=== PATIENT | female | born 1935 | race Caucasian/White ===

== ENCOUNTER 2017-04-26 10:28 | Emergency (ER) | payer MEDICARE ==
[2017-04-26] MEDS ORDERED: Lidocaine 1% PF 5 ML VIAL ONE (11:25)
[2017-04-26] MEDS ORDERED: HYDROcodone/Acetaminophen 5/325 mg Tablet ONE (11:25)
--- NOTE | 2017-04-26 11:59 | RAD ---
THREE VIEWS LEFT HAND: Indication: History of fall. FINDINGS: There is a dorsal impacted intraarticular distal radius fracture. There is diffuse osteopenia. No ad ditional fractures grossly evident. There is scattered osteoarthrosis. IMPRESSION: 1. Dorsally impacted distal radius fracture. Dedicated radiographs of the left wrist are recommended . 2. No acute fracture or subluxation of the left knee. POS: [facility]
--- NOTE | 2017-04-26 11:59 | RAD ---
FOUR VIEWS LEFT KNEE: Indication: Fall. FINDINGS: There is diffuse osteopenia. There is left total knee prosthesis that projects in the expected posit ion. No acute fracture or subluxation is evident. IMPRESSION: No acute osseous abnormality. POS: [facility]
--- NOTE | 2017-04-26 12:03 | RAD ---
AP PELVIS: Indication: Fall, pelvic pain. FINDINGS: There is diffuse osteopenia. There is mild degenerative change of both hips. There is chondrocalcino sis of both hips as well as the symphysis pubis. There is vertebroplasty change at L4 and L5. No acu te fracture or subluxation is evident. Enthesopathic change off the anterior iliac wing is stable. IMPRESSION: No acute osseous abnormality. POS: [facility]
--- NOTE | 2017-04-26 12:49 | RAD ---
THREE VIEWS OF THE LEFT WRIST: Comparison: Left hand laceration after fall over a case of [employer] this morning. FINDINGS: Three views of the left wrist shows no evidence of acute fracture or dislocation. There is widening of the scapholunate interval and moderate degenerative change in the radiocarpal joint. No radiopaqu e foreign body is seen. IMPRESSION: Moderate left wrist degenerative change without acute osseous abnormality. POS: [facility]
[2017-04-26] MEDS ORDERED: Bacitracin Zinc 1 Packet ONE (13:23)
== END 2017-04-26 13:45 | disposition home or self-care (01) ==
LOC: SCSER 10:28
DX: S61.412A Laceration without foreign body of left hand, initial encounter (principal); S39.011A Strain of muscle, fascia and tendon of abdomen, initial encounter; S63.502A Unspecified sprain of left wrist, initial encounter; S80.02XA Contusion of left knee, initial encounter; I10 Essential (primary) hypertension; K21.9 Gastro-esophageal reflux disease without esophagitis; Z79.899 Other long term (current) drug therapy; W20.8XXA Other cause of strike by thrown, projected or falling object, initial encounter
CPT/HCPCS: 12002; 72170; J2001

== ENCOUNTER 2017-05-11 12:10 | Outpatient (CLI) | payer MEDICARE ==
--- NOTE | 2017-05-11 16:04 | MRI ---
MRI LUMBAR SPINE WITHOUT CONTRAST: Technique: Multiplanar, multisequential imaging of the lumbar spine obtained. History: Intervertebral disc disorder. Lumbar radiculopathy. Patient fell two weeks ago with persist ent back pain. Comparison: MRI lumbar spine from 10-06-16, lumbar CT 03-16-16. FINDINGS: S1 is a transitional vertebra which will be designated to S1 which corresponds to previous designati ons. There is a wedge compression deformity at the T12 vertebra with loss of central and anterior height. This is stable from the 10-06-16 exam and also from the 03-16-16 exam. T12-L1: No disc bulge or protrusion. L1-2: There is a compression deformity which has progressed since the CT of 03-16-16. There is eviden ce of vertebroplasty material within this vertebral body since the prior exam of 10-06-16. The degree of compression has not significantly changed since that exam. There is mild retropulsion of the pos terior superior cortex of L2 and there is a diffuse bulge at the L1-2 disc flattening the thecal sac . Facet arthrosis is present and there is mild central canal stenosis at this level which is unchang ed. L2-3: There is no evidence of protrusion or disc bulge. No central canal stenosis at this level. L3-4: No disc bulge or protrusion. No central canal or foraminal stenosis. L4-5: Vertebroplasty changes at L4 with no compression. L5: There is vertebroplasty changes. There is mild loss of height at L5 with evidence of superior en dplate compression. Slight retropulsion of the posterior superior cortex of L5 with normal disc bulg e at the L4-5 disc. Facet hypertrophy. Mild central canal stenosis. L5-S1: Mild diffuse disc bulge is again seen flattening the thecal sac. There is disc hypertrophy. M ild to moderate central canal stenosis. Disc osteophyte complex projects laterally to the right at t his level and appears to contact the lateral right L5 nerve root. IMPRESSION: Vertebroplasty changes at L2, L4, and L5 when compared to the prior study. Compression deformities a re again seen and are stable. Findings as each level are described. POS: [facility]
== END 2017-05-11 12:11 | disposition home or self-care (01) ==
LOC: SCSMRI 12:10
PROVIDERS: ATTEND Specialist
DX: M51.16 Intervertebral disc disorders with radiculopathy, lumbar region (principal); Z98.890 Other specified postprocedural states
CPT/HCPCS: 72148

== ENCOUNTER 2018-07-04 01:50 | Observation (INO) | payer MEDICARE ==
[2018-07-04] MEDS ORDERED: Lidocaine 1% w/Epinephrine 1:100K 20 ML VIAL ONE (02:04)
[2018-07-04] MEDS ORDERED: Acetaminophen 500 MG TAB ONE (02:14)
[2018-07-04] MEDS ORDERED: Ondansetron ODT 4 MG TAB ONE (02:54)
[2018-07-04 03:30] LABS: #Basophils 0.1 thou/uL (0.0-0.2); #Eosinphils 0.3 thou/uL (0.0-0.7); #Lymphocytes 3.4 thou/uL (1.20-3.40); #Monocytes 0.7 thou/uL (0.11-0.59); #Neutrophils 10.6 thou/uL (1.40-6.50); %Basophils 0.9 % (0.0-1.0); %Eosinophils 1.8 % (0.0-10.0); %Lymphocytes 22.4 % (21.0-51.0); %Monocytes 4.5 % (0.0-10.0); %Neutrophils 70.4 % (42.0-75.0); Hemoglobin 14.1 g/dL (12.0-16.0); Mean Corpuscular HGB CONC 34.9 g/dL (32.0-36.0); Mean Corpuscular Hemoglobin 29.6 pg (27.0-31.0); Mean Corpuscular Volume 84.7 fL (78.0-98.0); Platelet Count 291 thou/uL (130-400); RBC Distribution Width 11.4 % (11.5-14.5); Red Blood Cell (RBC) Count 4.75 mill/uL (4.20-5.40); White Blood Cell (WBC) Count 15.1 thou/uL (4.8-10.8)
[2018-07-04 04:06] LABS: ALT (SGPT) 28 U/L (8-55); AST (SGOT) 21 U/L (5-34); Albumin 3.8 g/dL (3.4-4.8); Alkaline Phosphatase 76 U/L (40-150); Anion Gap 16 mmol/L (10-20); BUN (Urea Nitrogen) 16 mg/dL (9.8-20.1); Bilirubin, Total 0.3 mg/dL (0.2-1.2); Calc. Creatinine Clearance 0 mL/min (70-130); Calcium 10.5 mg/dL (7.8-10.44); Carbon Dioxide 23 mmol/L (23-31); Chloride 102 mmol/L (98-107); Estimated GFR-MDRD 68; Globulin 2.7 g/dL (2.4-3.5); Glucose 165 mg/dL (83-110); Potassium 3.7 mmol/L (3.5-5.1); Protein, Total 6.5 g/dL (6.0-8.3); Sodium 137 mmol/L (136-145)
[2018-07-04 06:58] VITALS: BMI 35.6
[2018-07-04] MEDS ORDERED: Meclizine HCl 12.5 MG TAB PO PRN (08:05)
[2018-07-04 08:16] LABS: #Lymphocytes 2.3 thou/uL (1.20-3.40); #Monocytes 0.6 thou/uL (0.11-0.59); #Neutrophils 11.8 thou/uL (1.40-6.50); %Basophils 0.3 % (0.0-1.0); %Eosinophils 0.3 % (0.0-10.0); %Lymphocytes 15.9 % (21.0-51.0); %Monocytes 3.9 % (0.0-10.0); %Neutrophils 79.6 % (42.0-75.0); Hemoglobin 12.8 g/dL (12.0-16.0); Mean Corpuscular HGB CONC 33.9 g/dL (32.0-36.0); Mean Corpuscular Hemoglobin 30.9 pg (27.0-31.0); Mean Corpuscular Volume 91.1 fL (78.0-98.0); Mean Platelet Volume 6.8 fL (7.4-10.4); Platelet Count 299 thou/uL (130-400); RBC Distribution Width 11.9 % (11.5-14.5); Red Blood Cell (RBC) Count 4.13 mill/uL (4.20-5.40); White Blood Cell (WBC) Count 14.8 thou/uL (4.8-10.8)
[2018-07-04 08:18] LABS: Troponin I Less than 0.010 ng/mL (< 0.028)
--- NOTE | 2018-07-04 08:21 | RAD ---
PORTABLE CHEST ONE VIEW: Date: 07-04-18 Time: 4:17 a.m. History: Syncope. FINDINGS: The heart size is borderline. The lungs are expanded without focal areas of consolidation, pneumothor ax, hari pulmonary edema or pleural effusions. IMPRESSION: No acute process. POS: [facility]
--- NOTE | 2018-07-04 08:24 | RAD ---
LEFT HIP TWO VIEWS: History: Fall. Left leg pain. Lower extremity laceration. FINDINGS/IMPRESSION: There are post op changes of total knee arthroplasty. The left tibia and fibula are intact. POS: [facility]
--- NOTE | 2018-07-04 10:45 | CT ---
HEAD CT WITHOUT CONTRAST: HISTORY: Syncope. COMPARISON: None. FINDINGS: No parenchymal hemorrhage. No extraaxial hematoma. No midline shift. Basilar cisterns are patent. Brain volume is age appropriate. Cortical mathias white matter differentiation is preserved. The ventricles and sulci are patent and symmetric. White matter hypodensities due to chronic small vessel ischemic change. Indeterminate lacunar infarc t along the anterior limb of the left internal capsule. The calvarium is intact. Adequate aeration of the sinuses and mastoid air cells. Atherosclerosis is noted. IMPRESSION: 1. Indeterminate lacunar infarct involving the anterior limb of the left internal capsule. 2. Chronic small vessel ischemic changes of the white matter. 3. Further interrogation with brain MRI, if clinically warranted. POS: [facility]
[2018-07-04] MEDS ORDERED: Senokot S 8.6-50 MG TAB PO PRN (11:20)
--- NOTE | 2018-07-04 12:07 | ULT ---
ULTRASOUND CAROTID DOPPLER STANDARD: History: Syncope. Comparison: None. FINDINGS: There are no elevated peak systolic velocities within the internal carotid arteries. Vertebral arteri es are patent with antegrade flow. Right ICA/CCA ratio is 0.6 and left ICA/CCA is 0.8. IMPRESSION: No hemodynamically significant stenosis. POS: [facility]
[2018-07-04 12:54] LABS: Bilirubin Negative (Negative); Blood, Urine Negative (Negative); Clarity CLEAR (Clear); Glucose, Urine (Dipstick) Negative (Negative); Leukocyte Trace (Negative); Nitrite Negative (Negative); Protein, Urine (Dipstick) Negative (Neg-Trace); Specific Gravity, Urine 1.014 (1.002-1.036); Urobilinogen 0.2 mg/dL (0.2-1.0)
[2018-07-04 12:55] LABS: Bacteria/HPF None Seen HPF (None Seen); Hyaline Casts/LPF 0-3 HYALINE CAST LPF (0-3 Hyaline); WBC/HPF 0-3 HPF (0-3)
[2018-07-04 13:22] LABS: RBC/HPF 0-3 HPF (0-3)
[2018-07-04] MEDS: Acetaminophen 325 MG TAB PO PRN (13:43)
[2018-07-04] MEDS: Acetaminophen/Codeine 30-300mg Tablet PO PRN ×2 (14:55→20:22)
--- NOTE | 2018-07-04 15:49 | HP ---
PCP: Dr. Bisi Taylor. CHIEF COMPLAINT: Dizziness, fall, and left lower leg laceration. HISTORY OF PRESENT ILLNESS: Ms. Egan is a very pleasant 83-year-old female, who was brought to the emergency room after she states that she got up, walked to the bathroom, became dizzy and fell striking a portable heater that is in her bathroom causing about a 13-cm laceration on her left lower leg and bruises along her left side of the lateral rib cage. She does report that she has a history of vertigo for the last several months. Reports that she can do the Luis Alberto maneuver and it helps significantly. Reports this is the first time she has actually fallen from being dizzy. Reports that when she does feel dizzy, she often feels a pull to the left side. Reports that sometimes at night when she is attempting to sleep, she gets dizzy and she can roll onto her left side and it abates. She has seen Dr. Taylor for this vertigo. He prescribed an initial course of prednisone and then meclizine as needed. Also has a past medical history of hypertension and GERD. She did deny any chest pain or shortness of breath. Denies hitting her head when she fell this morning. She denied any loss of consciousness. She reports that her side took the brunt of the fall. The patient was admitted for syncopal workup. The patient's notes report that she became a little hypotensive during the lock repair. She was given some sodium chloride 1 L and that improved. Her blood pressure while she has been hospitalized has remained stable. She was admitted to the stroke unit for further evaluation. PAST MEDICAL HISTORY: As above. PAST SURGICAL HISTORY: Has had a lumbar spinal surgery, hysterectomy, bilateral knee replacements, cataract repair to bilateral eyes. PSYCH HISTORY: None. SOCIAL HISTORY: The patient denies any alcohol use. Denies any drug use. Denies any history of smoking. ALLERGIES: SHE IS ALLERGIC TO POULTRY, EGGS, AND PENICILLIN. HOME MEDICATIONS: Include; 1. Amlodipine 2.5 mg p.o. at bedtime. 2. Aspirin 325 mg p.o. daily. 3. Lactobacillus 1 capsule p.o. daily. 4. Losartan/hydrochlorothiazide 100 mg/12.5 mg p.o. daily. 5. Toprol-XL 50 mg p.o. b.i.d. 6. Multivitamin 1 tablet p.o. daily. 7. Zegerid 20 mg one p.o. daily. 8. Trazodone 50 mg p.o. at bedtime. REVIEW OF SYSTEMS: The patient is reporting some tenderness to her left lateral rib cage. There is some ecchymosis present. Mild tenderness to left lower leg, where her laceration is. She is denying any current dizziness. Denies any chest pain, shortness of breath, or diaphoresis. All other systems were reviewed and are negative unless mentioned in the HPI. PHYSICAL EXAMINATION: VITAL SIGNS: Temperature is 98.8, pulse is 81, respirations are 20, blood pressure 129/68, and pulse ox is 97% on room air. CONSTITUTIONAL: The patient appears nontoxic, in no distress. She is alert and oriented to person, place, and time. HEENT: Head is atraumatic and normocephalic. Eyes are equally round and reactive to light. Extraocular muscles are intact. ENT; mouth exam is normal. Mucous membranes are moist. NECK: Normal range of motion. Trachea is midline. RESPIRATORY/CHEST: Breath sounds are clear. Chest movement is symmetrical. She does have a left thoracic tenderness to her rib cage on the left lateral. No step-off or crepitus is palpated. CARDIOVASCULAR: S1 and S2. Regular heart rate. Normal rate and rhythm. ABDOMEN: Female. Nontender. Bowel sounds are heard. BACK: Normal inspection. No tenderness. EXTREMITIES: Upper extremities; inspection is normal. Range of motion is normal. Sensation is intact. Pulses are equal bilaterally. Lower extremities; range of motion is normal. Motor strength is normal. Sensation is intact. Left dumont with a crescent-shaped laceration, 13 cm is currently sutured. NEURO: The patient is alert to person, place, and time. There is no focal sensory or motor weakness. SKIN: Dry, normal in color. Laceration is noted to left dumont. DIAGNOSTIC DATA: EKG interpretation; normal sinus rhythm at 63 beats per minute. She has a first-degree AV block, left axis deviation. Chest x-ray shows no acute process. Also had an x-ray of her left tib-fib, which showed tibia and fibula are intact. No other acute changes. LABORATORY DATA: White blood cell count is 14.8, red blood cells of 4.13, and platelet count 299. Chemistry; sodium 137, potassium 3.7, chloride 102, gap is 16, BUN is 16, creatinine is 0.81, GFR is 68, and glucose 165. Liver enzymes are unremarkable. Troponins x2 are undetectable. ASSESSMENT AND PLAN: 1. Dizziness with fall: Most likely related to vertigo; however, as this is the first time she has fallen due to her dizziness, we will do a transient ischemic attack workup including a CT of the brain, carotid Dopplers, and echocardiogram. We will trend troponins. We would gently hydrate and restart her meclizine. 2. Hypertension: We will continue her home medications. We will monitor her vital signs. 3. Gastrointestinal and deep vein thrombosis prophylaxis will be started. 4. Hospital course will be dependent on clinical findings. Job ID: [id number]
--- NOTE | 2018-07-04 18:08 | MRI ---
MRI OF THE BRAIN WITHOUT CONTRAST: 07/04/18 COMPARISON: None. HISTORY: Dizziness. Infarct seen on CT of indeterminate size. COMPARISON: CT of brain 07/04/18. TECHNIQUE: Multiplanar and multisequence MR images were obtained of the brain without IV contrast. FINDINGS: There are multiple scattered foci of high FLAIR signal in the subcortical and periventricular white m atter, likely secondary to small vessel ischemic disease. No restricted diffusion is seen to suggest an acute infarction. The abnormality on the CT of the brain represents a remote infarct. There is no evidence of hydrocephalus, intracranial hemorrhage or extra-axial fluid collection. The e xpected flow voids are present. The corpus callosum, pituitary, craniocervical junction are unremarka ble. The calvarium and overlying soft tissues are unremarkable. The visualized paranasal sinuses and masto id air cells are well aerated. IMPRESSION: Extensive small vessel ischemic disease without acute intracranial abnormality. POS: [facility]
[2018-07-04] MEDS: Famotidine 20 MG TAB PO SCH (20:22)
[2018-07-04] MEDS ORDERED: Amlodipine 5 MG TAB PO SCH (21:00)
[2018-07-05] MEDS: Acetaminophen 325 MG TAB PO PRN (00:54)
[2018-07-05] MEDS: Acetaminophen/Codeine 30-300mg Tablet PO PRN (02:54)
[2018-07-05 06:14] LABS: #Eosinphils 0.2 thou/uL (0.0-0.7); #Lymphocytes 3.1 thou/uL (1.20-3.40); #Monocytes 0.8 thou/uL (0.11-0.59); %Basophils 0.4 % (0.0-1.0); %Eosinophils 2.5 % (0.0-10.0); %Lymphocytes 34.2 % (21.0-51.0); %Monocytes 8.3 % (0.0-10.0); %Neutrophils 54.6 % (42.0-75.0); Hemoglobin 11.4 g/dL (12.0-16.0); Mean Corpuscular HGB CONC 34.3 g/dL (32.0-36.0); Mean Corpuscular Hemoglobin 31.5 pg (27.0-31.0); Mean Corpuscular Volume 91.8 fL (78.0-98.0); Mean Platelet Volume 6.7 fL (7.4-10.4); Platelet Count 242 thou/uL (130-400); RBC Distribution Width 12.1 % (11.5-14.5); Red Blood Cell (RBC) Count 3.62 mill/uL (4.20-5.40); White Blood Cell (WBC) Count 9.1 thou/uL (4.8-10.8)
[2018-07-05 06:36] LABS: ALT (SGPT) 23 U/L (8-55); AST (SGOT) 19 U/L (5-34); Albumin 3.4 g/dL (3.4-4.8); Alkaline Phosphatase 68 U/L (40-150); Anion Gap 11 mmol/L (10-20); BUN (Urea Nitrogen) 11 mg/dL (9.8-20.1); Bilirubin, Total 0.5 mg/dL (0.2-1.2); Calc. Creatinine Clearance 92 mL/min (70-130); Calcium 10.2 mg/dL (7.8-10.44); Carbon Dioxide 26 mmol/L (23-31); Chloride 103 mmol/L (98-107); Estimated GFR-MDRD 89; Globulin 2.1 g/dL (2.4-3.5); Glucose 105 mg/dL (83-110); Protein, Total 5.5 g/dL (6.0-8.3); Sodium 136 mmol/L (136-145)
[2018-07-05] MEDS ORDERED: Aspirin 325 mg Enteric Coated Tablet PO SCH (09:00)
[2018-07-05] MEDS ORDERED: Losartan 25 MG TAB PO SCH (09:00)
[2018-07-05] MEDS ORDERED: HYDROCHLOROTHIAZIDE PO SCH (09:00)
[2018-07-05] MEDS ORDERED: SODIUM BICARBONATE PO SCH (09:00)
[2018-07-05] MEDS ORDERED: Hydrochlorothiazide 25 MG TAB PO SCH (09:00)
[2018-07-05] MEDS ORDERED: OMEPRAZOLE PO SCH (09:00)
[2018-07-05] MEDS ORDERED: Multivit, Therapeutic 1 TAB PO SCH (09:00)
[2018-07-05] MEDS ORDERED: Floranex Packet PO SCH (09:00)
[2018-07-05] MEDS ORDERED: LOSARTAN PO SCH (09:00)
[2018-07-05] MEDS ORDERED: Sodium Bicarbonate Tab 325 MG TAB PO SCH (09:00)
[2018-07-05] MEDS: Famotidine 20 MG TAB PO SCH (10:02)
[2018-07-05 12:01] VITALS: BP 144/77; TEMP 98.1
--- NOTE | 2018-07-05 13:40 | DIS ---
DATE OF ADMISSION: 07/04/2018 DATE OF DISCHARGE: 07/05/2018 PRIMARY CARE PHYSICIAN: Bisi Taylor MD CONSULTANTS: None. PROCEDURES: 1. The patient had an x-ray of her tib-fib left side, which showed postop changes of total knee arthroplasty, but tibia and fibula were intact. The patient also had a chest x-ray, which showed no acute process. 2. The patient had a brain CT, which showed;. a. Indeterminant lacunar infarct involving the anterior limb of the left internal capsule. b. Chronic small vessel ischemic changes. 3. Brain MRI is recommended as needed. 4. The patient also had a carotid Doppler study, which showed no hemodynamically significant stenosis. 5. The patient had a brain MRI, which showed extensive small vessel ischemic disease without any acute intracranial abnormalities. 6. The patient also had an echocardiogram, which showed an EF visually estimated to 70% to 75%, hyperdynamic LV suggests a low volume state, sigmoid-shaped septum without any hemodynamically significant LVOT obstruction. Grade 1/3 diastolic dysfunction. Mildly dilated left atrium. Mildly enlarged right atrium size. Mitral annular calcification. Mild mitral regurgitation. Mild tricuspid regurgitation. Mild aortic regurgitation. DISCHARGE DIAGNOSES: 1. Vertigo. 2. Left leg laceration. 3. Hypertension. HOSPITAL COURSE: The patient was admitted through the emergency room on 07/04/2018, for dizziness and a fall. The patient reports a history of vertigo, but this is the first time that she has actually fallen after experiencing a bout of dizziness. She fell in the bathroom and cut her lower left leg on a heater that was in the bathroom. Reports that the brunt of her fall was on her left lateral side and her leg. Denies hitting her head. Does report that she was walking to the bathroom in the middle of the night when she experiences dizziness when she got to the bathroom. She reports that she usually changes positions slowly with her history of vertigo, but the need to go to the bathroom is overwhelming, so she got up and moved a little faster than she normally did. The patient is on aspirin and does not take any anticoagulants. The patient was evaluated for TIA and procedures mentioned above were performed as the MRI was negative for any acute process and other exams were within normal limits. Her vital signs have remained stable. The patient has remained stable and will be discharged home. She will need to follow up with Dr. Taylor within the next week and she should have the stitches removed on the left lower leg extremity within the next 10 to 14 days. She has been counseled to restart her meclizine as needed. She does have some at home and denied a need for a new prescription. She was asked to keep the area of her leg laceration clean and dry, not to rub the area, and to apply some antibiotic ointment on it 2 or 3 times a day. REVIEW OF SYSTEMS: The patient was examined this morning prior to discharge. Denies any complaints. Denies any dizziness while she has been hospitalized. Denies chest pain, shortness of breath, fever, chills, cough, abdominal pain, nausea, vomiting, or diarrhea. All other systems were reviewed and were negative unless mentioned in the hospital course. PHYSICAL EXAMINATION: VITAL SIGNS: Temperature 98.7, pulse is 79, respirations 18, pulse ox is 97% on room air, and blood pressure 134/75. CONSTITUTIONAL: The patient is alert and oriented, in no apparent distress. Nontoxic appearing. HEENT: Head is atraumatic and normocephalic. Eyes are round and reactive to light. Extraocular muscles are intact. ENT, mouth exam is normal. Mucous membranes are moist. NECK: Normal range of motion. Trachea is midline. RESPIRATORY: Chest, breath sounds are clear. Chest movement is symmetrical. The patient does have some ecchymoses to the left lateral rib cage. CARDIOVASCULAR: S1 and S2. Heart sounds are normal. ABDOMEN: Female. Nontender on palpation. Bowel sounds are heard. BACK: No tenderness. Normal inspection. EXTREMITIES: Upper extremities, normal inspection, normal range of motion, pulses are equal bilaterally. Lower extremities, range of motion is normal, motor strength is normal, does have a crescent-shaped laceration on the left dumont about 13 cm, which has been sutured. NEURO: The patient is alert and oriented to person, place, and time. No focal, sensory, or motor deficits. SKIN: Warm, dry, and intact. Left lower dumont with a healing laceration. ALLERGIES: THE PATIENT IS ALLERGIC TO DEMEROL, PENICILLINS, PNEUMOCOCCAL VACCINE, EGGS, AND POULTRY. ALSO ALLERGIC TO PEANUTS. MEDICATIONS: The patient will be continued on her home medications, which include; 1. Amlodipine 2.5 mg p.o. h.s. 2. Aspirin 325 mg p.o. daily. 3. Lactobacillus 1 capsule p.o. daily. 4. Losartan/hydrochlorothiazide 100 mg/12.5 mg p.o. daily. 5. Toprol 50 mg p.o. b.i.d. 6. Multivitamin 1 tablet p.o. daily. 7. Omeprazole 20 mg p.o. daily. 8. Trazodone 50 mg p.o. h.s. 9. Meclizine mg p.o. t.i.d. The patient's condition is stable. The patient will be discharged home. Referral, Dr. Bisi Taylor within 1 week. Should have the sutures removed in 10 to [address] Taylor or an Emergency Room Urgent Care. Job ID: [id number]
--- NOTE | 2018-07-10 12:12 | EKG ---
Test Reason : Blood Pressure : / mmHG Vent. Rate : 063 BPM Atrial Rate : 063 BPM P-R Int : 238 ms QRS Dur : 102 ms QT Int : 436 ms P-R-T Axes : 050 -42 004 degrees QTc Int : 446 ms Sinus rhythm with 1st degree A-V block Left axis deviation Possible Anterior infarct , age undetermined Q waves inferior leads T wave inversion in lead III Abnormal ECG Confirmed by YENI GATES DO ([id number]), order editor JENELLE DARLING ([id number]) on 07/10/2018 12:11:32 PM Referred By: Confirmed By:YENI GATES DO
== END 2018-07-05 13:31 | disposition home or self-care (01) ==
LOC: SCSER 01:50 → 2SE 03:50
PROVIDERS: ADMIT Internal Medicine; ATTEND Internal Medicine
DX: R42 Dizziness and giddiness (principal); S81.812A Laceration without foreign body, left lower leg, initial encounter; I10 Essential (primary) hypertension; I34.0 Nonrheumatic mitral (valve) insufficiency; I36.1 Nonrheumatic tricuspid (valve) insufficiency; I35.1 Nonrheumatic aortic (valve) insufficiency; K21.9 Gastro-esophageal reflux disease without esophagitis; Z90.710 Acquired absence of both cervix and uterus; Z96.653 Presence of artificial knee joint, bilateral; Z98.41 Cataract extraction status, right eye; Z98.42 Cataract extraction status, left eye; Z91.012 Allergy to eggs; Z88.0 Allergy status to penicillin; Z88.5 Allergy status to narcotic agent; Z88.7 Allergy status to serum and vaccine; Z91.010 Allergy to peanuts; Z79.82 Long term (current) use of aspirin; Z79.899 Other long term (current) drug therapy; W22.8XXA Striking against or struck by other objects, initial encounter
CPT/HCPCS: 12005; 70450; 70551; 71045; 73590; 80053 ×2; 84484 ×2; 85025 ×3; 86850; 86900; 86901; 87086; 93005; 93306; 93880; 97110; 97116 ×2; 97139 ×4; 97535; 99284; G0378; G8978; G8979; G8987; G8988; 36415; 81003; 81015; 96360; G8996-GN-CI; G8997-GN-CI; J2001; Q0162

== ENCOUNTER 2018-10-08 10:03 | Outpatient (CLI) | payer MEDICARE ==
--- NOTE | 2018-10-08 12:16 | RAD ---
LUMBAR SPINE FOUR VIEWS: 10/08/2018 HISTORY: Intervertebral disk disorder with radiculopathy. COMPARISON: None. FINDINGS: Kyphoplasty changes are noted at L2, L4, and L5. Transitional S1 vertebral body noted. Old superior endplate fractures of L2 and L5 are noted. Chronic anterior wedge compression fracture of T12 noted . On the neutral lateral examination, there is mild anterolisthesis of L5 on S1, measuring 6-7 mm. Upo n extension, the anterolisthesis of L5 on S1 measures 6 mm and, on flexion, the anterolisthesis of L5 on S1 measures 5-6 mm. There is lower lumbar spine and facet hypertrophic change. IMPRESSION: Degenerative and post procedural/post traumatic findings within the lumbar spine, as detailed above. POS: [facility]
== END 2018-10-08 10:04 | disposition home or self-care (01) ==
LOC: RAD 10:03
PROVIDERS: ATTEND Specialist
DX: M51.16 Intervertebral disc disorders with radiculopathy, lumbar region (principal); M47.26 Other spondylosis with radiculopathy, lumbar region
CPT/HCPCS: 72120

== ENCOUNTER 2018-11-16 11:04 | Emergency (ER) | payer MEDICARE ==
[2018-11-16] MEDS ORDERED: traMADol HCl 50 MG TAB ONE (11:52)
[2018-11-16 12:19] LABS: Bilirubin Negative (Negative); Blood, Urine Negative (Negative); Glucose, Urine (Dipstick) Negative (Negative); Leukocyte Trace (Negative); Nitrite Negative (Negative); Protein, Urine (Dipstick) Negative (Neg-Trace); Specific Gravity, Urine 1.015 (1.005-1.030)
--- NOTE | 2018-11-16 12:21 | RAD ---
Radiograph pelvis one view: 11/16/2018 at 12:00 PM HISTORY: 83-year-old female with acute traumatic pelvic pain due to fall COMPARISON: 05/20/2017. FINDINGS: The previously demonstrated left pubic body and adjacent left superior ramus, and left inferior ramus , are now 2-year-old, with bony hypertrophy. The pelvic ring appears to be intact. Femoral head contours are bilaterally normal. No subcapital osteophytes. Diffuse osteopenia. Again noted is the ve rtebroplasty cement in lower lumbar spine. IMPRESSION: 1. No grossly displaced acute fracture identified. 2. The osteopenia could mask a nondisplaced or mildly displaced acute fracture. Therefore, if symptom s do not improve over the next several days, further evaluation with follow-up CT or MRI of the pelvis, noncontrast, should be considered. 3. Old healed fractures of left pubis, including body, superior ramus, and inferior ramus. 4. Old vertebroplasty in lower lumbar spine.
[2018-11-16 12:22] LABS: Clarity Hazy (Clear)
--- NOTE | 2018-11-16 12:24 | RAD ---
Radiograph right wrist 3 views: 11/16/2018 at 12:08 PM HISTORY: 83-year-old female with traumatic wrist pain due to fall COMPARISON: None available FINDINGS: Comminuted fracture of distal radial metaphysis and epiphysis, including intra-articular component wh ere there is mild anteroposterior displacement between anterior and posterior fragments at the radiocarpal articular surface. Posterior fracture fragment is displaced posteriorly and towards the u lnar side by several millimeters. Fracture at base of ulnar styloid process with mild posterior displacement of distal fragment. Diffuse, severe osteopenia. IMPRESSION: 1. Acute, traumatic, comminuted, displaced distal radial metaphyseal and epiphyseal fracture, includi ng intra-articular component. 2. Acute, traumatic, mildly displaced ulnar styloid base fracture.
[2018-11-16 12:27] LABS: Bacteria/HPF 1+ HPF (None Seen); RBC/HPF None Seen HPF (0-3); WBC/HPF 0-3 HPF (0-3)
--- NOTE | 2018-11-16 12:48 | RAD ---
LEFT KNEE 4 VIEWS: HISTORY: Fall, left knee pain. FINDINGS/IMPRESSION: There are postop changes of total knee arthroplasty in good position and alignment. No acute fractur e or dislocation is seen. POS: [facility]
--- NOTE | 2018-11-16 12:52 | RAD ---
LUMBAR SPINE 3 VIEWS: HISTORY: Trauma, fall, low back pain. FINDINGS/IMPRESSION: There are postop changes of vertebroplasty involving the L1, L3, and L4 vertebral bodies. Compressio n of T11 vertebral body is stable since 03/14/2016. No acute fracture or subluxation is identified. Old fractures of the left pubic rami are present. POS: [facility]
== END 2018-11-16 12:55 | disposition home or self-care (01) ==
LOC: SCSER 11:04
DX: S59.201A Unspecified physeal fracture of lower end of radius, right arm, initial encounter for closed fracture (principal); S52.571A Other intraarticular fracture of lower end of right radius, initial encounter for closed fracture; S52.611A Displaced fracture of right ulna styloid process, initial encounter for closed fracture; K21.9 Gastro-esophageal reflux disease without esophagitis; I10 Essential (primary) hypertension; Z79.899 Other long term (current) drug therapy; Z79.82 Long term (current) use of aspirin; W19.XXXA Unspecified fall, initial encounter
CPT/HCPCS: 29125; 72100; 72170; 81003; 81015; 87086

== ENCOUNTER 2018-11-20 08:48 | Inpatient (IN) | payer MEDICARE ==
[2018-11-20 09:23] LABS: #Eosinphils 0.2 thou/uL (0.0-0.7); #Monocytes 0.6 thou/uL (0.11-0.59); #Neutrophils 5.9 thou/uL (1.40-6.50); %Basophils 0.4 % (0.0-1.0); %Eosinophils 2.7 % (0.0-10.0); %Lymphocytes 23.2 % (21.0-51.0); %Monocytes 6.5 % (0.0-10.0); %Neutrophils 67.2 % (42.0-75.0); Hemoglobin 12.9 g/dL (12.0-16.0); Mean Corpuscular HGB CONC 33.3 g/dL (32.0-36.0); Mean Corpuscular Hemoglobin 29.6 pg (27.0-31.0); Mean Corpuscular Volume 88.9 fL (78.0-98.0); Mean Platelet Volume 6.5 fL (7.4-10.4); Platelet Count 391 thou/uL (130-400); Red Blood Cell (RBC) Count 4.37 mill/uL (4.20-5.40); White Blood Cell (WBC) Count 8.7 thou/uL (4.8-10.8)
[2018-11-20 09:35] LABS: PTT 30.5 SEC (22.9-36.1); Prothrombin Time 13.7 SEC (12.0-14.7)
[2018-11-20 09:50] LABS: ALT (SGPT) 15 U/L (8-55); AST (SGOT) 11 U/L (5-34); Albumin 3.6 g/dL (3.4-4.8); Alkaline Phosphatase 111 U/L (40-150); Anion Gap 11 mmol/L (10-20); BUN (Urea Nitrogen) 17 mg/dL (9.8-20.1); Bilirubin, Total 0.5 mg/dL (0.2-1.2); Calc. Creatinine Clearance 0 mL/min (70-130); Carbon Dioxide 28 mmol/L (23-31); Chloride 96 mmol/L (98-107); Estimated GFR-MDRD 84; Globulin 2.5 g/dL (2.4-3.5); Glucose 112 mg/dL (83-110); Potassium 3.9 mmol/L (3.5-5.1); Protein, Total 6.1 g/dL (6.0-8.3); Sodium 131 mmol/L (136-145)
--- NOTE | 2018-11-20 10:25 | CT ---
CT OF THE ABDOMEN AND PELVIS WITH IV CONTRAST INDICATION: Left lower quadrant abdominal pain COMPARISON: Lumbar spinal radiograph dated December 08, 2018 FINDINGS: ABDOMEN: Lung bases: Clear Liver: No focal hepatic lesion is evident. There is a small hiatal hernia. Gallbladder: Normal appearing. Pancreas: Normal. Adrenal glands: There is a 9 mm nodule within the left adrenal gland that cannot be further character ized. The right adrenal gland is normal-appearing. Spleen: Normal. Kidneys: There are tiny hypodensities involving the right and left kidney that are difficult characte rize due to their size but statistically are likely reflective of cysts. Retroperitoneum of the upper abdomen: There are mild vascular calcification involving the abdominal a matias. No lymphadenopathy is present. Pelvis: Small and large bowel: There are scattered diverticula involving the colon. There is pericolonic infl ammatory stranding involving the proximal sigmoid colon on image 52 of series 2. No drainable fluid collection is evident. There is liquid distending the rectum and colon which can be seen with diarrhe al states. There is a normal appendix in the right lower quadrant. The small bowel is of normal caliber. There are small diverticulum involving the third stage of the duodenum. Bladder: Normal. Rectal and perirectal soft tissues:The rectum is moderately distended with fluid and fecal material. Reproductive structures: Small amount of gas is seen within the upper vaginal vault which may be rela colleen to recent examination or manipulation. Free fluid in pelvis: No free fluid is evident. Lymphadenopathy pelvis: No lymphadenopathy is evident. Osseous structures: There is diffuse osteopenia. There is vertebroplasty change at L2, L4 and L5 whic h is stable to a prior radiograph dated 10/08/2018. A moderate compression abnormality involving T12 is stable. No acute osseous abnormality is evident. There is scattered degenerative and osteoarthrit ic changes. IMPRESSION: 1. Noncomplicated diverticulitis of the proximal sigmoid colon. 2. Left adrenal nodule, incompletely characterized. Follow-up CT abdomen with and without contrast ut ilizing adrenal mass protocol may be helpful for further characterization. 3. Renal hypodensities 4. Small amount of gas in the upper vaginal vault may be related to recent examination or manipulatio n. Recommend correlation. 5. Small hiatal hernia
[2018-11-20] MEDS ORDERED: Pantoprazole 40 MG VIAL ONE (10:41)
[2018-11-20] MEDS ORDERED: metroNIDAZOLE 500 MG in Premix Bag 1 BAG IVPB SCH (11:30)
[2018-11-20] MEDS ORDERED: hydrALAZINE 20 MG/ML VIAL SLOW IVP PRN (12:22)
[2018-11-20] MEDS ORDERED: Ondansetron ODT 4 MG TAB PO PRN (12:22)
[2018-11-20] MEDS ORDERED: Meclizine HCl 12.5 MG TAB PO PRN (12:22)
[2018-11-20] MEDS ORDERED: Ondansetron PF 4 MG/2 ML Vial IVP PRN (12:22)
[2018-11-20] MEDS ORDERED: ISOVUE-370 76%-LOCM 1 ML ONE (13:01)
[2018-11-20] MEDS ORDERED: Ondansetron PF 4 MG/2 ML Vial ONE (13:36)
[2018-11-20 14:35] LABS: Hemoglobin 10.9 g/dL (12.0-16.0)
--- NOTE | 2018-11-20 18:39 | NM ---
NM Abdominal Bleeding Pyp Scan History: [GI bleed.] Comparison: CT abdomen and pelvis same day Findings: Abdominal imaging was performed after the intravenous administration of 27 mCi technetium 9 9m tagged red blood cells. No abnormal accumulation of radiotracer within the large bowel or small bowel. Impression: No evidence of active GI bleed.
--- NOTE | 2018-11-20 18:59 | HP ---
PRIMARY CARE PROVIDER: Bisi Taylor MD CHIEF COMPLAINT: Blood per rectum. HISTORY OF PRESENT ILLNESS: This is an 83-year-old female, who presents to [facility] Emergency Department complaining of right red blood per rectum that began approximately 4:30 a.m. on 11/20/2018. The patient states she had some abdominal cramping in the lower section of her abdomen with some associated nausea without emesis. The patient states she suddenly had bright red blood in her stool on multiple occasions. The patient denied any recent trauma, injury, or change to her dietary regimen. The patient does state that she has been taking multiple doses of ibuprofen in addition to her chronic daily 81 mg aspirin. Due to a fall approximately 2 to 3 weeks ago, sustaining a right forearm fracture. The patient states she sought no specific treatment for her right arm fracture until two weeks after her fall. Most recently, undergoing radiographic imaging on 11/16/2018, showing a comminuted and displaced distal right radial fracture. The patient was also noted with a displaced ulnar fracture and was placed in a fiberglass cast. The patient states due to the pain in her right wrist, she was taking increased doses of Motrin to assist with her symptoms. The patient states she has had an episode of diverticulitis in the past with some bleeding in her stool, but not to the extent she experienced this morning. The patient denied any specific documented fever, dysuria, or recent antibiotic exposure. The patient does admit to some abdominal discomfort in the left lower quadrant cramping and radiating into the flank region. In the emergency room, the patient underwent general evaluation including CT imaging of the abdomen and pelvis showing evidence of diverticulitis. Initial hemoglobin was 12.9 and the patient received IV Protonix, intravenous fluids, as well as Flagyl and ciprofloxacin intravenously. PAST MEDICAL HISTORY: 1. Vertigo with recurrent falls x5. 2. Right distal radius/ulnar fracture post fall. 3. Laceration to left lower extremity, status post mechanical fall. 4. Hypertension. 5. History of diverticulitis. PAST SURGICAL HISTORY: 1. Status post lumbar spine surgery. 2. Status post hysterectomy. 3. Status post bilateral total knee arthroplasty. 4. Status post cataract repair. CURRENT MEDICATIONS: 1. Enteric-coated aspirin 81 mg p.o. daily. 2. Amlodipine 2.5 mg p.o. at bedtime. 3. Losartan/hydrochlorothiazide 100/12.5 mg 1 tablet p.o. daily. 4. Metoprolol 50 mg p.o. b.i.d. 5. Multivitamin 1 tablet p.o. daily. 6. Omeprazole 20 mg 1 tablet p.o. daily. 7. Trazodone 50 mg p.o. at bedtime. 8. Antivert 12.5 mg p.o. t.i.d. p.r.n. ALLERGIES: TO DEMEROL, PENICILLIN, AND EGGS. FAMILY HISTORY: No inheritable disease per the patient report. SOCIAL HISTORY: No current alcohol, tobacco, or illicit drug use. Ambulates with a rolling walker. Multiple falls per family report with multiple injuries in the last 6 to 8 months. Accompanied by her in the emergency department. Previously receiving home health services including physical therapy with [facility]. REVIEW OF SYSTEMS: CONSTITUTIONAL: Negative for weight loss or gain, ability to conduct usual activities. SKIN: Negative for rash, itching. EYES: Negative for double vision, pain. ENT/MOUTH: Negative for nose bleeding, neck stiffness, pain, tenderness. CARDIOVASCULAR: Negative for palpitations, dyspnea on exertion, orthopnea. RESPIRATORY: Negative for shortness of breath, wheezing, cough, hemoptysis, fever or night sweats. GASTROINTESTINAL: Negative for poor appetite, abdominal pain, heartburn, nausea, vomiting, constipation, or diarrhea. GENITOURINARY: Negative for urgency, frequency, dysuria, nocturia. MUSCULOSKELETAL: Negative for pain, swelling. NEUROLOGIC/PSYCHIATRIC: Negative for anxiety, depression. ALLERGY/IMMUNOLOGIC: Negative for skin rash, bleeding tendency. Otherwise, negative except as stated per HPI. PHYSICAL EXAMINATION: VITAL SIGNS: On admission; blood pressure 106/55, pulse 66, respiratory rate 14, temperature 97.7 degrees Fahrenheit, and O2 saturation 98% on room air. GENERAL APPEARANCE: This is an 83-year-old female, alert and oriented x3, pleasant, responsive, in no acute distress. HEENT: Pupils are equal, round, and reactive to light and accommodation. Extraocular muscles are intact. No scleral icterus. No conjunctival injection. Nares patent. OP is clear. Teeth in good repair. NECK: Supple. No cervical adenopathy. No thyromegaly. No carotid bruits. No JVD appreciated. Cervical spine with full active and passive range of motion. No meningeal signs noted. CHEST: Lungs are clear to auscultation bilaterally. CARDIOVASCULAR: S1 and S2 without noted murmur, rub, or gallop. ABDOMEN: Obese with mild tenderness to palpation in the left lower quadrant. Bowel sounds are positive in all 4 quadrants. No palpable mass. Landmarks are difficult to palpate due to patient's body habitus. EXTREMITIES: Warm and dry with fair turgor. No clubbing, cyanosis, or asymmetric edema appreciated. Pulses are palpable distally at the dorsalis pedis, posterior tibial, and popliteal arteries bilaterally. Capillary refill less than 2 seconds. NEUROLOGIC: Cranial nerves 2 through 12 are grossly intact. No focal or lateralizing signs appreciated. The patient now observed ambulatory during this exam. PERTINENT LAB AND X-RAY FINDINGS: Sodium 131, potassium 3.9, chloride 96, CO2 of 28, BUN 17, creatinine 0.67, estimated GFR of 84, and glucose 112. LFTs within normal limits. CBC showed a white blood cell count 8.7, hemoglobin 13, hematocrit 39, and platelet count 391 with normal differential. PT 13.7, INR 1.0, PTT 30.5. CT of the abdomen and pelvis dated 11/20/2018, showed noncomplicated diverticulitis in the proximal sigmoid colon. Left adrenal nodule incompletely characterized on this study. ASSESSMENT AND PLAN: 1. Acute lower gastrointestinal bleeding. The patient will be admitted to the medical floor. Suspect diverticular source given the patient's history and presentation. We will continue serial hemoglobin monitoring. Consult GI Service for further evaluation. Continue intravenous normal saline at 75 mL/h. Avoid aspirin, nonsteroidal anti-inflammatory drugs, and anticoagulation. Continue Protonix 40 mg IV q.12 hours. 2. Acute diverticulitis. Suspected given the patient's presentation. Continue Levaquin 500 mg IV daily with additional Flagyl 500 mg IV q.8 hours. N.P.O. Except for water and medications. Gastroenterology consult pending. 3. Hyponatremia. We will repeat sodium level in the a.m. Continue intravenous normal saline at 75 mL/h. 4. Hypertension. Continue home blood pressure regimen and monitor clinical response. P.R.N. hydralazine and clonidine. 5. Multiple falls. We will consult PT, OT service for evaluation and functional assessment. The patient may need additional group home care versus home health with physical therapy. General fall risk precautions. 6. Right distal forearm fracture. Continue fiberglass casting. Pain control as clinically indicated. 7. Prophylaxis. Sequential compression devices while in bed. Protonix 40 mg IV q.12 hours. PT and OT evaluation pending. 8. Code status is full. Surrogate medical decision maker is the patient's spouse. Job ID: [id number]
[2018-11-20] MEDS: metroNIDAZOLE 500 MG in Premix Bag 1 BAG IVPB SCH ×2 (20:07→21:24)
--- NOTE | 2018-11-20 21:13 | CON ---
DATE OF CONSULTATION: 11/20/2018 CHIEF COMPLAINT: Blood in the stool. HISTORY OF PRESENT ILLNESS: Ms. Egan woke up at 4:30 this morning and had 2 liquidy bowel movements, but did not view them because it was dark. By 6:30 this morning, she had a 3rd runny bowel movement and this time realized it was red bloody stool. She came onto the emergency room for further care and has had around 6 more dark liquidy red bloody stools over that time period. She has had some nausea this afternoon, but no vomiting. She felt weak and broke out in a cold sweat and with the initial bowel movements this morning. She has had no shortness of breath or chest pain. She has had no ongoing abdominal pain, but has had some tenderness in the left abdomen. She reports a few days ago she did have some mild aching pain in the left abdomen and thought that she might have a recurrence of diverticulitis, but that improved by itself within a few hours. She states that she has taken antibiotics once or twice per year of the last few years for clinically suspected diverticulitis. She has not had diarrhea preceding this episode. Her weight has been stable. PAST MEDICAL HISTORY: She did have a GI bleed back in January 2014 with hypotension and anemia. She underwent EGD at that time in 2013, which was negative. She subsequently underwent colonoscopy in January 2014 that showed diverticulosis throughout the colon and a 7 mm adenoma was removed. PAST MEDICAL HISTORY: Prior GI bleed, gastroesophageal reflux disease, and hypertension. PAST SURGICAL HISTORY: Hysterectomy, bilateral knee replacements, cataract surgery, and spine surgery. FAMILY HISTORY: Negative for GI malignancy. SOCIAL HISTORY: No alcohol, tobacco, or drugs. ALLERGIES: PENICILLIN, MEPERIDINE, PEANUTS, AND EGGS. MEDICATIONS: As an outpatient include; 1. Aspirin 81 mg daily. 2. Losartan with hydrochlorothiazide. 3. Metoprolol. 4. Amlodipine. 5. She had injured her wrist a while ago and had been taking Aleve twice daily and ibuprofen in between every 6 hours. REVIEW OF SYSTEMS: Negative x10 systems reviewed except as stated in the history of present illness. PHYSICAL EXAMINATION: GENERAL: She is in no acute distress. She is alert and oriented x3. She is pale. HEENT: Eyes have no scleral icterus. Oropharynx is clear without lesions. No cervical or supraclavicular lymphadenopathy. LUNGS: Clear to auscultation bilaterally. HEART: Regular rate and rhythm without murmur. ABDOMEN: Soft. She has mild tenderness in the left side of the abdomen without guarding. Bowel sounds are present. EXTREMITIES: No lower extremity edema. VITAL SIGNS: Blood pressure 148/94. She did drop her blood pressure down to the one teens and received a 2nd liter bolus. Her pulse is 72, temperature 97.8. LABORATORY DATA: White blood cell count 8.7, hemoglobin is 12.9 down from 14.5 back in August and down to 10.9 this afternoon at 1423, platelets 391. INR 1.0. Creatinine 0.67. LFTs were normal. IMPRESSION: 1. Acute gastrointestinal bleed with dark red hematochezia. An upper gastrointestinal bleed is possible, especially considering that she had been taking NSAIDs for wrist pain. She is also on aspirin. With her previous gastrointestinal bleed back in 2013, upper endoscopy was negative and colonoscopy showed diverticulosis throughout the colon and she was thought to have a diverticular bleed at that point. 2. Anemia of acute blood loss. 3. Abnormal CT scan showing some inflammatory changes of the proximal sigmoid colon. It is possible that she has ischemic colitis in this area. Diverticulitis is also possible, but does not typically present with bleeding. Infectious colitis to be a consideration, but much less likely. RECOMMENDATIONS: 1. Proton pump inhibitor. 2. Request an a nuclear medicine abdominal bleeding scan. Colonoscopy is likely to be of low yield for diverticular bleed. Given the use of NSAIDs, we still want to keep an upper gastrointestinal bleed in consideration. Follow through with the nuclear medicine abdominal bleeding scan. 3. Continued IV fluids and monitor the trend of the hemoglobin. 4. Empiric antibiotics given the inflammatory changes of the sigmoid colon by CT. Job ID: [id number]
[2018-11-20] MEDS: Sodium Chloride 0.9% 1,000 ML IV SCH ×2 (21:24)
[2018-11-20] MEDS: Amlodipine 5 MG TAB PO SCH (21:25)
[2018-11-20] MEDS: Pantoprazole 40 MG VIAL IVP SCH (21:25)
[2018-11-20] MEDS: traZODone HCl 50 MG TAB PO SCH (21:25)
[2018-11-21] MEDS: metroNIDAZOLE 500 MG in Premix Bag 1 BAG IVPB SCH ×3 (05:19→20:24)
[2018-11-21 06:36] LABS: Hemoglobin 9.1 g/dL (12.0-16.0); Mean Corpuscular HGB CONC 33.9 g/dL (32.0-36.0); Mean Corpuscular Hemoglobin 30.3 pg (27.0-31.0); Mean Corpuscular Volume 89.2 fL (78.0-98.0); Mean Platelet Volume 6.5 fL (7.4-10.4); Platelet Count 266 thou/uL (130-400); Red Blood Cell (RBC) Count 3.02 mill/uL (4.20-5.40); White Blood Cell (WBC) Count 7.3 thou/uL (4.8-10.8)
[2018-11-21 06:50] LABS: Anion Gap 7 mmol/L (10-20); BUN (Urea Nitrogen) 12 mg/dL (9.8-20.1); Calc. Creatinine Clearance 90 mL/min (70-130); Calcium 9.4 mg/dL (7.8-10.44); Carbon Dioxide 26 mmol/L (23-31); Chloride 104 mmol/L (98-107); Estimated GFR-MDRD Greater than 90; Glucose 115 mg/dL (83-110); Potassium 3.4 mmol/L (3.5-5.1); Sodium 134 mmol/L (136-145)
[2018-11-21 07:14] LABS: Eosinophils 4 % (0-10); Lymphocytes 21 % (21-51); MDiff Complete? YES; Monocytes 2 % (0-10); Neutrophil 73 % (42-75); Platelet Morphology Comment Appears Adequate; Polychromasia SLIGHT = 2-3 cells (100X) (0-2/hpf)
--- NOTE | 2018-11-21 07:36 | PDOC.PN ---
- Subjective Encounter Start Date: 11/21/18 Encounter Start Time: 09:40 Subjective: Patient without further bleeding. H/H stable. LLQ pain resolved before -: came to hospital. A bit of diffuse abdominal soreness today. No N/V. - Objective Resuscitation Status - Order Detail: 11/20/18 12:02 Resuscitation Status Routine Resuscitation Status: FULL: Full Resuscitation MAR Reviewed: Yes Vital Signs & Weight: Vital Signs (12 hours) Temp Pulse Resp BP Pulse Ox 11/21/18 03:33 98.5 F 80 17 127/58 L 98 11/21/18 00:00 98.0 F 74 17 102/56 L 94 L 11/20/18 20:22 98.4 F 72 18 178/70 H 96 11/20/18 20:00 97 Weight Weight 176 lb 9.6 oz I&O: 11/20/18 11/21/18 11/22/18 06:59 06:59 06:59 Intake Total 900 Balance 900 Result Diagrams: 11/21/18 06:15 11/21/18 06:15 Phys Exam - Physical Examination Constitutional: NAD HEENT: moist MMs Respiratory: no wheezing, no rales, no rhonchi Cardiovascular: RRR, no significant murmur Gastrointestinal: soft, no distention, positive bowel sounds mild diffuse TTP, no masses or guarding Neurological: non-focal, moves all 4 limbs Psychiatric: normal affect, A&O x 3 Dx/Plan (1) Diverticulitis Code(s): K57.92 - DVTRCLI OF INTEST, PART UNSP, W/O PERF OR ABSCESS W/O BLEED Status: Acute Comment: Levaquin and Metronidazole since 11/20/18 (2) Acute blood loss anemia Code(s): D62 - ACUTE POSTHEMORRHAGIC ANEMIA Status: Acute Comment: Hgb 12.9 --> 9.1 (3) Closed fracture of right distal radius and ulna Code(s): S52.501A - UNSP FRACTURE OF THE LOWER END OF RIGHT RADIUS, INIT; S52.601A - UNSP FRACTURE OF LOWER END OF RIGHT ULNA, INIT FOR CLOS FX Status: Acute Comment: with cast in place (4) Hypertension Code(s): I10 - ESSENTIAL (PRIMARY) HYPERTENSION Status: Chronic (5) GI bleed Code(s): K92.2 - GASTROINTESTINAL HEMORRHAGE, UNSPECIFIED Status: Chronic (6) Vertigo Code(s): R42 - DIZZINESS AND GIDDINESS Status: Chronic - Plan cont current plan of care, continue antibiotics, PT/OT, DVT proph w/SCDs recheck H/H in AM, d/c if stable. 7 days of abx. Appreciate Dr. Canchola's -: assistance. * . - Discharge Day Encounter end time: 09:50
[2018-11-21] MEDS ORDERED: Potassium Chloride 20 MEQ/100 ML PREMIX BAG IVPB SCH (07:45)
[2018-11-21] MEDS: Lactinex Tablet PO SCH (09:42)
[2018-11-21] MEDS: Pantoprazole 40 MG VIAL IVP SCH ×2 (09:43→20:23)
[2018-11-21] MEDS: Sodium Chloride 0.9% 1,000 ML IV SCH (09:48)
[2018-11-21] MEDS: Acetaminophen 500 MG TAB PO PRN ×2 (11:59→20:20)
--- NOTE | 2018-11-21 14:56 | PRG ---
DATE OF SERVICE: 11/21/2018 SUBJECTIVE: Ms. Egan has no abdominal pain today. She has had no further bleeding since yesterday afternoon. OBJECTIVE: VITAL SIGNS: Temperature 98.3, pulse 85, and blood pressure 106/53. GENERAL: She is in no acute distress. Alert and oriented x3. LUNGS: Clear to auscultation bilaterally. HEART: Regular rate and rhythm without murmur. ABDOMEN: Soft. Minimal tenderness in the left abdomen. Bowel sounds are present. EXTREMITIES: No lower extremity edema. IMPRESSION: 1. Anemia secondary to acute blood loss. Her hemoglobin has dropped slightly to 9.1. 2. Gastrointestinal bleed. She presented with dark red hematochezia. This is likely secondary to a diverticular bleed. The nuclear medicine bleeding scan showed no signs of active bleeding yesterday evening. She is having no further overt bleeding at this point. 3. Abnormal CT scan showing thickening of the left colon around the sigmoid. She does have known pandiverticulosis. Diverticulitis causing bleeding would be very unusual. This could be an area of ischemic colitis that caused the bleeding. Alternatively, she could have diverticular bleed and also does have incidental thickening in the colon. Otherwise, it is possible that she could have diverticular bleed from one area and diverticulitis in another, but that would be again unusual. RECOMMENDATIONS: 1. Continue antibiotics. She can complete a 7-day course of metronidazole and fluoroquinolone. Diverticulitis and ischemic colitis would be treated largely the same at this point. 2. Advance to a full liquid diet. If she tolerates this well today and she has no further bleeding, then she can go back to a low-residue diet tomorrow. 3. Check hemoglobin tomorrow morning. Job ID: [id number]
[2018-11-21] MEDS: Amlodipine 5 MG TAB PO SCH (20:22)
[2018-11-21] MEDS: traZODone HCl 50 MG TAB PO SCH (20:24)
[2018-11-22] MEDS: Sodium Chloride 0.9% 1,000 ML IV SCH (05:15)
[2018-11-22] MEDS: metroNIDAZOLE 500 MG in Premix Bag 1 BAG IVPB SCH ×3 (05:16→20:55)
[2018-11-22 05:18] LABS: #Eosinphils 0.3 thou/uL (0.0-0.7); #Lymphocytes 1.7 thou/uL (1.20-3.40); #Monocytes 0.5 thou/uL (0.11-0.59); #Neutrophils 2.8 thou/uL (1.40-6.50); %Basophils 0.4 % (0.0-1.0); %Eosinophils 5.8 % (0.0-10.0); %Lymphocytes 31.4 % (21.0-51.0); %Monocytes 8.8 % (0.0-10.0); %Neutrophils 53.5 % (42.0-75.0); Hemoglobin 8.3 g/dL (12.0-16.0); Mean Corpuscular HGB CONC 34.6 g/dL (32.0-36.0); Mean Corpuscular Hemoglobin 30.9 pg (27.0-31.0); Mean Corpuscular Volume 89.3 fL (78.0-98.0); Mean Platelet Volume 6.3 fL (7.4-10.4); Platelet Count 266 thou/uL (130-400); RBC Distribution Width 13.3 % (11.5-14.5); Red Blood Cell (RBC) Count 2.68 mill/uL (4.20-5.40); White Blood Cell (WBC) Count 5.3 thou/uL (4.8-10.8)
--- NOTE | 2018-11-22 07:57 | PDOC.PN ---
- Subjective Encounter Start Date: 11/22/18 Encounter Start Time: 09:50 Subjective: Patient with some recurrent bloody bowel movement x2 this AM, none -: since. No weakness. No SOB. - Objective Resuscitation Status - Order Detail: 11/20/18 12:02 Resuscitation Status Routine Resuscitation Status: FULL: Full Resuscitation MAR Reviewed: Yes Vital Signs & Weight: Vital Signs (12 hours) Temp Pulse Resp BP Pulse Ox 11/22/18 03:05 97.8 F 73 18 131/60 95 11/22/18 00:10 99.0 F 78 18 121/56 L 94 L 11/21/18 20:22 81 11/21/18 20:15 98.5 F 81 18 133/61 98 11/21/18 20:00 96 Weight Admit Weight 178 lb 9.191 oz Weight 176 lb 11.2 oz I&O: 11/21/18 11/22/18 11/23/18 06:59 06:59 06:59 Intake Total 900 2176 Balance 900 2176 Result Diagrams: 11/22/18 12:00 11/22/18 12:00 Phys Exam - Physical Examination Constitutional: NAD HEENT: moist MMs Respiratory: no wheezing, no rales, no rhonchi Cardiovascular: RRR, no significant murmur Gastrointestinal: soft, positive bowel sounds right arm in short arm cast Neurological: non-focal, moves all 4 limbs Psychiatric: normal affect, A&O x 3 Dx/Plan (1) Diverticulitis Code(s): K57.92 - DVTRCLI OF INTEST, PART UNSP, W/O PERF OR ABSCESS W/O BLEED Status: Acute Comment: Levaquin and Metronidazole since 11/20/18, will complete 7 days of antibiotics (2) Acute blood loss anemia Code(s): D62 - ACUTE POSTHEMORRHAGIC ANEMIA Status: Acute Comment: Hgb 12.9 --> 9.1 --> 8.3 (3) Closed fracture of right distal radius and ulna Code(s): S52.501A - UNSP FRACTURE OF THE LOWER END OF RIGHT RADIUS, INIT; S52.601A - UNSP FRACTURE OF LOWER END OF RIGHT ULNA, INIT FOR CLOS FX Status: Acute Comment: with cast in place (4) Hypertension Code(s): I10 - ESSENTIAL (PRIMARY) HYPERTENSION Status: Chronic (5) GI bleed Code(s): K92.2 - GASTROINTESTINAL HEMORRHAGE, UNSPECIFIED Status: Chronic (6) Vertigo Code(s): R42 - DIZZINESS AND GIDDINESS Status: Chronic - Plan cont current plan of care, continue antibiotics, PT/OT, DVT proph w/SCDs will replete potassium -: recheck lab at noon, if stable may be able to d/c home * . - Discharge Day Encounter end time: 10:00
[2018-11-22] MEDS: Pantoprazole 40 MG VIAL IVP SCH ×2 (09:14→20:54)
[2018-11-22] MEDS: Lactinex Tablet PO SCH (09:19)
[2018-11-22 12:07] LABS: #Eosinphils 0.5 thou/uL (0.0-0.7); #Lymphocytes 2.5 thou/uL (1.20-3.40); #Monocytes 0.8 thou/uL (0.11-0.59); #Neutrophils 6.6 thou/uL (1.40-6.50); %Basophils 0.2 % (0.0-1.0); %Eosinophils 4.6 % (0.0-10.0); %Lymphocytes 24.4 % (21.0-51.0); %Monocytes 7.4 % (0.0-10.0); %Neutrophils 63.5 % (42.0-75.0); Mean Corpuscular Hemoglobin 29.8 pg (27.0-31.0); Mean Corpuscular Volume 90.1 fL (78.0-98.0); Mean Platelet Volume 6.2 fL (7.4-10.4); Platelet Count 346 thou/uL (130-400); RBC Distribution Width 13.4 % (11.5-14.5); Red Blood Cell (RBC) Count 3.35 mill/uL (4.20-5.40); White Blood Cell (WBC) Count 10.4 thou/uL (4.8-10.8)
[2018-11-22 12:26] LABS: Anion Gap 12 mmol/L (10-20); BUN (Urea Nitrogen) 10 mg/dL (9.8-20.1); Calc. Creatinine Clearance 82 mL/min (70-130); Calcium 10.3 mg/dL (7.8-10.44); Carbon Dioxide 23 mmol/L (23-31); Chloride 103 mmol/L (98-107); Estimated GFR-MDRD 84; Glucose 112 mg/dL (83-110); Potassium 3.5 mmol/L (3.5-5.1); Sodium 134 mmol/L (136-145)
[2018-11-22] MEDS: Acetaminophen 500 MG TAB PO PRN ×2 (15:23→21:29)
[2018-11-22] MEDS: traZODone HCl 50 MG TAB PO SCH (20:54)
[2018-11-22] MEDS: Amlodipine 5 MG TAB PO SCH (20:54)
[2018-11-23] MEDS: Sodium Chloride 0.9% 1,000 ML IV SCH ×2 (04:15→09:02)
[2018-11-23] MEDS: metroNIDAZOLE 500 MG in Premix Bag 1 BAG IVPB SCH (05:35)
[2018-11-23 06:19] LABS: #Basophils 0.1 thou/uL (0.0-0.2); #Eosinphils 0.4 thou/uL (0.0-0.7); #Lymphocytes 2.2 thou/uL (1.20-3.40); #Monocytes 0.5 thou/uL (0.11-0.59); #Neutrophils 3.1 thou/uL (1.40-6.50); %Basophils 0.8 % (0.0-1.0); %Eosinophils 6.7 % (0.0-10.0); %Monocytes 8.2 % (0.0-10.0); %Neutrophils 49.2 % (42.0-75.0); Hemoglobin 8.7 g/dL (12.0-16.0); Mean Corpuscular HGB CONC 33.8 g/dL (32.0-36.0); Mean Corpuscular Hemoglobin 30.3 pg (27.0-31.0); Mean Corpuscular Volume 89.8 fL (78.0-98.0); Mean Platelet Volume 6.4 fL (7.4-10.4); Platelet Count 295 thou/uL (130-400); RBC Distribution Width 13.5 % (11.5-14.5); Red Blood Cell (RBC) Count 2.88 mill/uL (4.20-5.40); White Blood Cell (WBC) Count 6.2 thou/uL (4.8-10.8)
[2018-11-23] MEDS: metroNIDAZOLE 500 MG TAB PO SCH ×2 (06:31→15:32)
[2018-11-23 06:39] LABS: Anion Gap 11 mmol/L (10-20); BUN (Urea Nitrogen) 11 mg/dL (9.8-20.1); Calc. Creatinine Clearance 92 mL/min (70-130); Calcium 9.9 mg/dL (7.8-10.44); Carbon Dioxide 23 mmol/L (23-31); Chloride 105 mmol/L (98-107); Estimated GFR-MDRD Greater than 90; Glucose 116 mg/dL (83-110); Potassium 3.8 mmol/L (3.5-5.1); Sodium 135 mmol/L (136-145)
[2018-11-23] MEDS: Pantoprazole 40 MG VIAL IVP SCH ×2 (09:02→11:50)
[2018-11-23] MEDS: Lactinex Tablet PO SCH (09:03)
[2018-11-23] MEDS: Acetaminophen 500 MG TAB PO PRN (11:50)
[2018-11-23 12:53] VITALS: BMI 33.5
--- NOTE | 2018-11-23 15:56 | PDOC.EVN ---
Event Note - Event Note Event Note: updated family and patient about left adrenal nodule. she will need a work up as outpatient. pt understands.
[2018-11-23 16:49] VITALS: BP 135/67; TEMP 98.5
--- NOTE | 2018-11-24 02:05 | DIS ---
DATE OF ADMISSION: 11/20/2018 DATE OF DISCHARGE: 11/23/2018 DISCHARGE DIAGNOSES: As of the following; 1. Diverticulitis. 2. Acute blood loss anemia. 3. Lower gastrointestinal bleed secondary to possible diverticulitis versus ischemic colitis. 4. Closed fracture of the right distal radius and ulna which is not new. 5. Hypertension. 6. Vertigo. HOSPITAL COURSE: The patient is an 83-year-old female who initially presented to the hospital on the with complaints of blood per rectum. The patient, however, at home has been taking significant amount of NSAIDs due to the pain of her right radial fracture. The patient at that time did undergo a CT which indicated diverticulitis and also her hemoglobin was 12.9. At this time, the patient was put on IV Protonix and was given some antibiotics and GI was also consulted. The patient continued to improve throughout the hospital stay. She did have a bleeding scan which did not indicate any active bleeding. The patient was seen by GI services, who recommended to continue the antibiotics for 7 days and advance diet as tolerated. The patient continued to improve throughout her hospital stay. Her H and H have been stable. She has been tolerating her diet without any difficulties. HOME MEDICATIONS: Her home medications will be as of the following; 1. Levaquin 500 mg daily. 2. Protonix 40 mg b.i.d. 3. Flagyl 500 mg q.8 hours. 4. Amlodipine 2.5 at bedtime. 5. Lactobacillus one p.o. daily. 6. Hydrochlorothiazide and losartan one tablet p.o. daily. 7. Toprol-XL 50 mg b.i.d. 8. Multivitamin one p.o. daily. 9. Omeprazole. PHYSICAL EXAMINATION: VITAL SIGNS: Are as of the following; 98.8, 79, 19, 95% on room air, 131/69. GENERAL: She is awake, alert, and oriented x3. Does not appear in distress. CV: S1 and S2 present. No murmurs, rubs, or gallops. ABDOMEN: Soft and nontender. Bowel sounds are present x2. EXTREMITIES: No edema. Pedal pulses are present x2. The patient does have a cast on her right hand, which she is able to move all her fingers just fine. Again, the patient will be discharged home. She will follow up with her primary care doctor and also with GI as outpatient. Job ID: [id number]
== END 2018-11-23 17:57 | disposition home or self-care (01) | DRG 393 ==
LOC: ERS 08:48 → ERHOLD 11:08 → 2NO 18:45
PROVIDERS: ADMIT Family Medicine; ATTEND Family Medicine
DX: K55.9 Vascular disorder of intestine, unspecified (principal); K57.33 Diverticulitis of large intestine without perforation or abscess with bleeding; D62 Acute posthemorrhagic anemia; E87.1 Hypo-osmolality and hyponatremia; I10 Essential (primary) hypertension; S52.501G Unspecified fracture of the lower end of right radius, subsequent encounter for closed fracture with delayed healing; Z96.653 Presence of artificial knee joint, bilateral; R42 Dizziness and giddiness; K21.9 Gastro-esophageal reflux disease without esophagitis; Z79.899 Other long term (current) drug therapy; Z88.0 Allergy status to penicillin; Z88.8 Allergy status to other drugs, medicaments and biological substances; Z79.82 Long term (current) use of aspirin; Z90.710 Acquired absence of both cervix and uterus
CPT/HCPCS: 29075; 36415; 74177; 78278; 80048; 80053; 85007; 85025; 85027; 85610; 85730; 86850; 86900; 86901; 99213; A9604; C9113; G0463; J0744; J1956; J2405; J3480; Q4010; Q9966

== ENCOUNTER 2018-12-20 10:59 | Outpatient (CLI) | payer MEDICARE ==
--- NOTE | 2018-12-20 14:03 | MRI ---
MR THORACIC SPINE WITHOUT CONTRAST INDICATION: Pain. COMPARISON: None. FINDINGS: No intrinsic expansile lesion of the thoracic spinal cord identified. Multilevel chronic compression deformities are present, including mild superior endplate irregulariti es of T6 and mild inferior endplate irregularities of T7 and T8. Moderate chronic compression deformity of T12 and incidentally imaged L2 vertebral body which also contains low signal from methyl methacrylate. No acute marrow edema. No significant subluxation. T1-T2: Minimal disc osteophyte without significant stenosis. T2-3: Left paracentral disc protrusion effaces the ventral thoracic spinal cord. No high-grade forami nal stenosis. T3-4: No significant stenosis. T4-5: No significant stenosis. T5-6: No significant stenosis. T6-7: Small disc bulge without significant stenosis. T7-8: Mild central disc protrusion effacing ventral thecal sac. T8-9: No significant stenosis. T9-10: Mild disc osteophyte slightly effacing ventral thecal sac. T10-11: Mild disc osteophyte slightly effacing ventral thecal sac. T11-12: Mild central canal stenosis due to retropulsion from chronic T12 compression. No significant cord deformity. IMPRESSION: 1. 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 Findings are most pronounced at T2-3 with a left paracentral disc protrusion producing mild ventral cord mass effect. 2. Multilevel chronic compression deformities.. Transcribed Date/Time: 12/20/2018 2:56 PM
--- NOTE | 2018-12-20 14:38 | MRI ---
NONCONTRAST ENHANCED MRI LUMBAR SPINE: Noncontrast enhanced MRI images lumbar spine. HISTORY: Patient with multiple vertebroplasties and recent fall, low back pain. Comparison made to previous exam from 05/11/2017. FINDINGS: The patient has had vertebro plasties involving L2, L4, and L5. 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 There is also pseudoarthrosis with left S1 transverse process in the left sacral alae. Old compression fracture seen with normal marrow signal at the T12 level. There is interval development of height loss at the L3 level with significant edema and retropulsion of the fractured fragment posteriorly. This is compatible with an acute L3 fracture. There is approximately 5 mm of posterior retropulsion of the posterior upper margin of the L3 vertebra. A broad-based disc bulge is seen at L5-S1. The S1 vertebral body and exiting nerve roots are unremarkable. IMPRESSION: Acute L3 vertebral body fracture. Transcribed Date/Time: 12/20/2018 3:00 PM
== END 2018-12-20 11:00 | disposition home or self-care (01) ==
LOC: SCSMRI 10:59
PROVIDERS: ATTEND Nurse Practitioner Family
DX: M47.817 Spondylosis without myelopathy or radiculopathy, lumbosacral region (principal); M54.14 Radiculopathy, thoracic region; S32.031A Stable burst fracture of third lumbar vertebra, initial encounter for closed fracture; M47.814 Spondylosis without myelopathy or radiculopathy, thoracic region; M51.24 Other intervertebral disc displacement, thoracic region; M43.8X4 Other specified deforming dorsopathies, thoracic region
CPT/HCPCS: 72146; 72148

== ENCOUNTER 2020-08-20 12:46 | Outpatient (CLI) | payer MEDICARE ==
--- NOTE | 2020-08-20 14:03 | MRI ---
Thoracic spine MRI without contrast: 08/20/2020 COMPARISON: 12/20/2018 HISTORY: Wedge compression fracture of the upper thoracic spine TECHNIQUE: Multiplanar multisequence MR imaging of the thoracic spine is obtained without contrast. FINDINGS: Multilevel incompletely imaged cervical spine disc space narrowing and mild posterior osteo phyte formation noted. There is mild anterolisthesis at C7-T1 measuring in the 3 mm range. The sagittal STIR imaging demonstrates increased signal intensity associated with a T5 burst fracture which is new when compared to the 12/20/2018 exam. There is mild osseous retropulsion with no significant associated central canal or neural foraminal stenosis. There is approximately 40% loss of vertebral body height anteriorly. The STIR imaging demonstrates a mild degree of increased signal intensity within the interspinous ligament at the T5-6 level suggesting edema on the basis of an acut e ligamentous injury in this region. In addition, there is increased STIR signal involving the posterior aspect of the spinous process of the T4 vertebral body which could be related to acute inju ry/fracture. No additional areas of acute fracture are seen on this examination. T1-2: There is mild bilateral facet hypertrophy with disc space narrowing. No significant central can al or neural foraminal stenosis. T2-3: Mild bilateral facet hypertrophy with no significant central canal or neural foraminal stenosis . T3-4: No significant central canal or neural foraminal stenosis. T4-5: There is disc space narrowing and disc desiccation with mild bilateral facet hypertrophy. Mild bilateral neural foraminal stenosis. No significant central canal stenosis. T5-6: There is disc space narrowing and disc desiccation with mild bilateral facet hypertrophy. No si gnificant central canal or neural foraminal stenosis. T6-7: There is disc space narrowing and disc desiccation with mild bilateral facet hypertrophy. No si gnificant central canal or neural foraminal stenosis. T7-8: Mild disc bulge. Disc space narrowing with disc desiccation and mild bilateral facet hypertroph y. No significant central canal or neural foraminal stenosis. T8-9: There is anterior osteophyte formation with disc space narrowing and disc desiccation. Bilatera l facet hypertrophy with no significant central canal or neural foraminal stenosis. T9-10: There is mild left-sided facet hypertrophy. There is disc space narrowing with disc desiccatio n. No significant central canal or neural foraminal stenosis. T10-11: There is disc space narrowing and disc desiccation with mild bilateral facet hypertrophy. No significant central canal or neural foraminal stenosis. T11-12: Disc space and with disc desiccation and mild disc osteophyte complex. No significant central canal or neural foraminal stenosis. There is an old anterior wedge compression fracture at the T12 level. T12-L1: No significant central canal or neural foraminal stenosis. There is no focal area of abnormal signal intensity identified within the thoracic cord. IMPRESSION: There is an acute burst fracture at the T5 level with a moderate degree of anterior verte bral body height loss, as seen on the 08/10/2020 thoracic spine radiographs. Edema within the tip of the spinous process at T4 may be related to fracture and fluid signal intensity in the region of the interspinous ligament at T5-6 could signify ligamentous injury. A CT could best assess the degree of fracture of clinically warranted. CODE T
== END 2020-08-20 12:47 | disposition home or self-care (01) ==
LOC: BICMRI 12:46
PROVIDERS: ATTEND Specialist
DX: S22.000A Wedge compression fracture of unspecified thoracic vertebra, initial encounter for closed fracture (principal); M54.14 Radiculopathy, thoracic region
CPT/HCPCS: 72146

== ENCOUNTER 2021-01-10 08:35 | Inpatient (IN) | payer MEDICARE ==
[2021-01-10] MEDS ORDERED: Morphine 4 MG/ML VIAL ONE ×2 (09:03→10:13)
[2021-01-10 09:36] LABS: #Eosinphils 0.2 thou/uL (0.0-0.7); #Lymphocytes 1.9 thou/uL (1.20-3.40); #Monocytes 0.6 thou/uL (0.11-0.59); #Neutrophils 12.5 thou/uL (1.40-6.50); %Basophils 0.1 % (0.0-1.0); %Eosinophils 1.5 % (0.0-10.0); %Lymphocytes 12.4 % (21.0-51.0); %Monocytes 3.9 % (0.0-10.0); %Neutrophils 82.1 % (42.0-75.0); Hemoglobin 14.2 g/dL (12.0-16.0); Mean Corpuscular HGB CONC 33.7 g/dL (32.0-36.0); Mean Corpuscular Hemoglobin 28.6 pg (27.0-31.0); Mean Corpuscular Volume 84.9 fL (78.0-98.0); Mean Platelet Volume 6.6 fL (7.4-10.4); Platelet Count 323 thou/uL (130-400); Red Blood Cell (RBC) Count 4.96 mill/uL (4.20-5.40); White Blood Cell (WBC) Count 15.2 thou/uL (4.8-10.8)
[2021-01-10 09:49] LABS: INR-International Normal Ratio 0.9; PTT 25.7 sec (22.9-36.1); Prothrombin Time 12.6 sec (12.0-14.7)
[2021-01-10 09:57] LABS: ALT (SGPT) 21 U/L (8-55); AST (SGOT) 25 U/L (5-34); Albumin 4.1 g/dL (3.4-4.8); Alkaline Phosphatase 112 U/L (40-110); Anion Gap 19 mmol/L (10-20); BUN (Urea Nitrogen) 11 mg/dL (9.8-20.1); Bilirubin, Total 0.5 mg/dL (0.2-1.2); Calc. Creatinine Clearance 0 mL/min (70-130); Calcium 10.6 mg/dL (7.8-10.44); Carbon Dioxide 20 mmol/L (23-31); Chloride 100 mmol/L (98-107); Globulin 3.4 g/dL (2.4-3.5); Glucose 119 mg/dL (83-110); Potassium 3.8 mmol/L (3.5-5.1); Protein, Total 7.5 g/dL (5.8-8.1); Sodium 135 mmol/L (136-145)
[2021-01-10] MEDS ORDERED: Bacitracin 1 PK ONE (10:08)
[2021-01-10] MEDS ORDERED: Ketorolac Tromethamine 30 MG/ML VIAL ONE (11:13)
[2021-01-10] MEDS ORDERED: Ondansetron PF 4 MG/2 ML Vial ONE ×2 (11:13→16:31)
[2021-01-10] MEDS ORDERED: Dextrose 5% in Water 1,000 ML IV PRN (11:22)
[2021-01-10] MEDS ORDERED: Ondansetron ODT 4 MG TAB PO PRN (11:22)
[2021-01-10] MEDS ORDERED: Dextrose 50% Abboject 50 ML SYRINGE SLOW IVP PRN (11:22)
[2021-01-10] MEDS ORDERED: Clindamycin/D5W 900 MG in Premix Bag 1 BAG IVPB SCH (11:30)
[2021-01-10] MEDS: Morphine 2 MG/ML VIAL SLOW IVP PRN (13:02)
[2021-01-10] MEDS: Sodium Chloride 0.9% 1,000 ML IV SCH ×2 (13:02→19:47)
[2021-01-10] MEDS: Acetaminophen 325 MG TAB PO SCH ×3 (13:12→19:40)
[2021-01-10 13:13] VITALS: BMI 31.1
[2021-01-10] MEDS: Ibuprofen 200 MG TAB PO SCH ×2 (15:26→20:48)
[2021-01-10] MEDS ORDERED: Fentanyl 100 MCG/2 ML VIAL ONE ×3 (15:47→18:37)
[2021-01-10] MEDS ORDERED: Phenylephrine 10 MG/ML VIAL ONE (15:47)
[2021-01-10] MEDS ORDERED: Levofloxacin 500 mg/D5W 100 ml Premix Bag ONE (16:12)
[2021-01-10] MEDS ORDERED: Clindamycin/D5W 900 mg/50 ml Premix Bag ONE (16:12)
[2021-01-10] MEDS ORDERED: Dexamethasone 20 MG/5 ML VIAL ONE (16:31)
[2021-01-10] MEDS ORDERED: PROPOFOL 200 MG/20 ML VIAL ONE (16:31)
[2021-01-10] MEDS ORDERED: Lidocaine 1% PF 5 ML VIAL ONE (16:31)
[2021-01-10] MEDS ORDERED: Rocuronium Bromide 10 MG/ML (10ML VIAL) ONE (16:31)
[2021-01-10] MEDS ORDERED: SUGAMMADEX SODIUM 200 MG/2 ML VIAL ONE (17:34)
[2021-01-10] MEDS ORDERED: HYDROmorphone 2 MG/ML VIAL SLOW IVP PRN (17:55)
[2021-01-10] MEDS ORDERED: Ondansetron HCl/PF 4 MG/2 ML Vial IVP PRN (17:55)
[2021-01-10] MEDS ORDERED: Promethazine HCl 25 MG/ML VIAL IVPB PRN (17:55)
[2021-01-10] MEDS ORDERED: Promethazine HCl 25 MG/ML VIAL IM PRN (17:55)
[2021-01-10] MEDS ORDERED: PACU-Morphine 4MG/ML VIAL SLOW IVP PRN (17:55)
[2021-01-10] MEDS: Senokot S 8.6-50 MG TAB PO SCH (19:39)
[2021-01-10] MEDS: Cyclobenzaprine 10 MG TAB PO PRN (19:39)
[2021-01-10] MEDS: Famotidine 20 MG TAB PO SCH (19:40)
[2021-01-10] MEDS: Melatonin 3 MG TAB PO SCH (19:40)
[2021-01-11] MEDS: Acetaminophen 325 MG TAB PO SCH ×5 (00:02→23:57)
[2021-01-11] MEDS: Morphine 2 MG/ML VIAL SLOW IVP PRN (00:03)
[2021-01-11] MEDS: Clindamycin/D5W 900 MG in Premix Bag 1 BAG IVPB SCH ×3 (00:03→17:12)
[2021-01-11] MEDS: Ibuprofen 200 MG TAB PO SCH ×3 (04:55→20:41)
[2021-01-11] MEDS: traMADol HCl 50 MG TAB PO PRN ×3 (04:56→17:11)
[2021-01-11 05:42] LABS: #Lymphocytes 0.9 thou/uL (1.20-3.40); #Monocytes 0.7 thou/uL (0.11-0.59); #Neutrophils 12.2 thou/uL (1.40-6.50); %Basophils 0.1 % (0.0-1.0); %Eosinophils 0.2 % (0.0-10.0); %Lymphocytes 6.4 % (21.0-51.0); %Monocytes 4.8 % (0.0-10.0); %Neutrophils 88.6 % (42.0-75.0); Hemoglobin 11.6 g/dL (12.0-16.0); Mean Corpuscular HGB CONC 33.3 g/dL (32.0-36.0); Mean Corpuscular Hemoglobin 28.4 pg (27.0-31.0); Mean Corpuscular Volume 85.4 fL (78.0-98.0); Mean Platelet Volume 6.5 fL (7.4-10.4); Platelet Count 236 thou/uL (130-400); RBC Distribution Width 13.9 % (11.5-14.5); Red Blood Cell (RBC) Count 4.08 mill/uL (4.20-5.40); White Blood Cell (WBC) Count 13.7 thou/uL (4.8-10.8)
[2021-01-11 06:03] LABS: Phosphorus 3.1 mg/dL (2.3-4.7)
[2021-01-11 06:07] LABS: Anion Gap 14 mmol/L (10-20); BUN (Urea Nitrogen) 14 mg/dL (9.8-20.1); Calc. Creatinine Clearance 70 mL/min (70-130); Calcium 9.6 mg/dL (7.8-10.44); Carbon Dioxide 21 mmol/L (23-31); Chloride 102 mmol/L (98-107); Glucose 137 mg/dL (83-110); Magnesium 1.5 mg/dL (1.6-2.6); Potassium 3.7 mmol/L (3.5-5.1); Sodium 133 mmol/L (136-145)
[2021-01-11] MEDS: Senokot S 8.6-50 MG TAB PO SCH ×2 (08:19→20:40)
[2021-01-11] MEDS: Polyethylene Glycol 3350 17 GM Packet PO SCH (08:19)
[2021-01-11] MEDS: Famotidine 20 MG TAB PO SCH ×2 (08:19→20:41)
[2021-01-11] MEDS: Cyclobenzaprine 10 MG TAB PO PRN ×2 (08:29→20:40)
[2021-01-11] MEDS ORDERED: Potassium Chloride 40 MEQ, Magnesium Sulfate 3 GM in Sodium Chloride 0.9% 250 ML 250 ML IVPB SCH (09:00)
[2021-01-11] MEDS: Aspirin 81 mg Enteric Coated Tablet PO SCH ×2 (10:13→20:40)
[2021-01-11] MEDS: Melatonin 3 MG TAB PO SCH (20:41)
[2021-01-12] MEDS: traMADol HCl 50 MG TAB PO PRN ×3 (02:36→21:04)
[2021-01-12] MEDS: Ibuprofen 200 MG TAB PO SCH ×3 (04:56→21:05)
[2021-01-12] MEDS: Acetaminophen 325 MG TAB PO SCH ×3 (04:56→17:08)
[2021-01-12 05:49] LABS: #Eosinphils 0.5 thou/uL (0.0-0.7); #Lymphocytes 2.2 thou/uL (1.20-3.40); #Monocytes 0.6 thou/uL (0.11-0.59); #Neutrophils 9.2 thou/uL (1.40-6.50); %Basophils 0.1 % (0.0-1.0); %Eosinophils 4.1 % (0.0-10.0); %Lymphocytes 17.5 % (21.0-51.0); %Monocytes 4.8 % (0.0-10.0); %Neutrophils 73.6 % (42.0-75.0); Hemoglobin 10.3 g/dL (12.0-16.0); Mean Corpuscular HGB CONC 33.7 g/dL (32.0-36.0); Mean Corpuscular Hemoglobin 28.7 pg (27.0-31.0); Mean Corpuscular Volume 85.2 fL (78.0-98.0); Mean Platelet Volume 6.8 fL (7.4-10.4); Platelet Count 213 thou/uL (130-400); RBC Distribution Width 14.1 % (11.5-14.5); Red Blood Cell (RBC) Count 3.58 mill/uL (4.20-5.40); White Blood Cell (WBC) Count 12.5 thou/uL (4.8-10.8)
[2021-01-12 06:19] LABS: Anion Gap 13 mmol/L (10-20); BUN (Urea Nitrogen) 15 mg/dL (9.8-20.1); Calc. Creatinine Clearance 77 mL/min (70-130); Calcium 9.5 mg/dL (7.8-10.44); Carbon Dioxide 22 mmol/L (23-31); Chloride 97 mmol/L (98-107); Glucose 103 mg/dL (83-110); Magnesium 1.7 mg/dL (1.6-2.6); Phosphorus 2.3 mg/dL (2.3-4.7); Potassium 4.1 mmol/L (3.5-5.1); Sodium 128 mmol/L (136-145)
[2021-01-12] MEDS: Senokot S 8.6-50 MG TAB PO SCH ×2 (08:15→23:12)
[2021-01-12] MEDS: Polyethylene Glycol 3350 17 GM Packet PO SCH (08:15)
[2021-01-12] MEDS: Aspirin 81 mg Enteric Coated Tablet PO SCH ×2 (08:16→21:07)
[2021-01-12] MEDS: Famotidine 20 MG TAB PO SCH ×2 (08:16→21:07)
[2021-01-12] MEDS ORDERED: Magnesium 2 GM/50 ML 2 GM in Premix Bag 1 BAG IVPB SCH (09:00)
[2021-01-12] MEDS ORDERED: Meclizine HCl 12.5 MG TAB PO PRN (10:38)
[2021-01-12] MEDS ORDERED: Hydrocortisone Sod Succ/PF 100 mg/2 ml Vial IVP SCH (11:00)
[2021-01-12] MEDS: Ondansetron PF 4 MG/2 ML Vial IVP PRN (11:34)
[2021-01-12 12:00] LABS: Troponin I 0.063 ng/mL (< 0.028)
[2021-01-12] MEDS ORDERED: NS 0.9% w/ 20 MEQ KCL 1,000 ML/1,000 ML BAG IV SCH (13:00)
[2021-01-12 15:18] LABS: Troponin I 0.039 ng/mL (< 0.028)
[2021-01-12] MEDS: Hydrocortisone Sod Succ/PF 100 mg/2 ml Vial IVP SCH ×2 (15:49→21:07)
[2021-01-12] MEDS ORDERED: Sodium Chloride 0.9% 1,000 ML IV SCH (18:15)
[2021-01-12] MEDS: Calcium Carbonate 500 MG ChewTAB PO PRN ×2 (19:03→23:20)
[2021-01-12] MEDS: Cyclobenzaprine 10 MG TAB PO PRN (21:03)
[2021-01-12] MEDS: Melatonin 3 MG TAB PO SCH (21:07)
[2021-01-12 22:48] LABS: Bacteria/HPF None Seen HPF (None Seen); Bilirubin Negative (Negative); Blood, Urine Negative (Negative); Clarity Clear (Clear); Glucose, Urine (Dipstick) Normal (Negative); Ketone, Urine 10 mg/dL (Negative); Leukocyte 25 Leu/uL (Negative); Nitrite Negative (Negative); Protein, Urine (Dipstick) Negative (Neg-Trace); RBC/HPF 0-3 HPF (0-3); Specific Gravity, Urine 1.018 (1.002-1.036); Squamous Epithelial 0-3 HPF (0-3); Urobilinogen Normal mg/dL (Less than 2); WBC/HPF 0-3 HPF (0-3); pH, Urine 5.5 (5.0-9.0)
[2021-01-12 22:49] LABS: Urine Culture Reflex Yes Yes
[2021-01-13] MEDS: Acetaminophen 325 MG TAB PO SCH ×4 (00:39→18:25)
[2021-01-13] MEDS ORDERED: OMEPRAZOLE PO SCH (02:30)
[2021-01-13] MEDS ORDERED: SODIUM BICARBONATE PO SCH (02:30)
[2021-01-13] MEDS ORDERED: Pantoprazole 40 MG GRANULES PACKET PO SCH ×2 (03:00→09:00)
[2021-01-13 03:11] LABS: Bacteria/HPF None Seen HPF (None Seen); Bilirubin Negative (Negative); Blood, Urine Negative (Negative); Clarity Clear (Clear); Glucose, Urine (Dipstick) Normal (Negative); Ketone, Urine 10 mg/dL (Negative); Leukocyte Negative Leu/uL (Negative); Mucous/LPF Rare LPF (<2+); Nitrite Negative (Negative); Protein, Urine (Dipstick) Negative (Neg-Trace); RBC/HPF 0-3 HPF (0-3); Specific Gravity, Urine 1.014 (1.002-1.036); Squamous Epithelial 0-3 HPF (0-3); Urobilinogen Normal mg/dL (Less than 2); WBC/HPF 0-3 HPF (0-3); pH, Urine 5.5 (5.0-9.0)
[2021-01-13] MEDS: Ondansetron PF 4 MG/2 ML Vial IVP PRN ×2 (04:11→12:42)
[2021-01-13] MEDS ORDERED: Scopolamine 1.5 mg/72 hour Patch TD SCH (05:30)
[2021-01-13] MEDS ORDERED: Morphine 2 MG/ML VIAL SLOW IVP SCH (05:45)
[2021-01-13] MEDS ORDERED: Sodium Chloride 0.9% (PF) 10 ML VIAL FS PRN (05:45)
[2021-01-13] MEDS ORDERED: Pantoprazole 40 MG VIAL IVP SCH (05:45)
[2021-01-13 05:49] LABS: #Eosinphils 0.2 thou/uL (0.0-0.7); #Lymphocytes 1.4 thou/uL (1.20-3.40); %Basophils 0.3 % (0.0-1.0); %Eosinophils 1.2 % (0.0-10.0); %Lymphocytes 7.7 % (21.0-51.0); %Monocytes 5.8 % (0.0-10.0); Hemoglobin 11.3 g/dL (12.0-16.0); Mean Corpuscular HGB CONC 33.7 g/dL (32.0-36.0); Mean Corpuscular Hemoglobin 28.8 pg (27.0-31.0); Mean Corpuscular Volume 85.6 fL (78.0-98.0); Mean Platelet Volume 7.1 fL (7.4-10.4); Platelet Count 215 thou/uL (130-400); RBC Distribution Width 14.1 % (11.5-14.5); Red Blood Cell (RBC) Count 3.92 mill/uL (4.20-5.40); White Blood Cell (WBC) Count 17.7 thou/uL (4.8-10.8)
[2021-01-13 06:05] LABS: Anion Gap 19 mmol/L (10-20); BUN (Urea Nitrogen) 20 mg/dL (9.8-20.1); Calc. Creatinine Clearance 78 mL/min (70-130); Calcium 9.7 mg/dL (7.8-10.44); Carbon Dioxide 20 mmol/L (23-31); Chloride 93 mmol/L (98-107); Glucose 144 mg/dL (83-110); Magnesium 1.6 mg/dL (1.6-2.6); Phosphorus 2.2 mg/dL (2.3-4.7); Potassium 3.7 mmol/L (3.5-5.1); Sodium 128 mmol/L (136-145)
[2021-01-13] MEDS ORDERED: Magnesium 2 GM/50 ML 2 GM in Premix Bag 1 BAG IVPB SCH (08:45)
[2021-01-13] MEDS ORDERED: Potassium Phosphate 30 MMOL in Sodium Chloride 0.9% 250 ML 250 ML IVPB SCH ×2 (09:00→17:30)
[2021-01-13] MEDS ORDERED: Losartan 25 MG TAB PO SCH (09:00)
[2021-01-13] MEDS: Polyethylene Glycol 3350 17 GM Packet PO SCH (09:09)
[2021-01-13] MEDS: Senokot S 8.6-50 MG TAB PO SCH ×2 (09:10→19:46)
[2021-01-13] MEDS: Aspirin 81 mg Enteric Coated Tablet PO SCH ×2 (09:14→19:48)
[2021-01-13] MEDS: Hydrochlorothiazide 25 MG TAB PO SCH (09:15)
[2021-01-13] MEDS: OMEPRAZOLE PO SCH (09:16)
[2021-01-13] MEDS: SODIUM BICARBONATE PO SCH (09:16)
[2021-01-13 13:17] LABS: Anion Gap 12 mmol/L (10-20); BUN (Urea Nitrogen) 20 mg/dL (9.8-20.1); Calc. Creatinine Clearance 77 mL/min (70-130); Calcium 9.6 mg/dL (7.8-10.44); Carbon Dioxide 27 mmol/L (23-31); Chloride 94 mmol/L (98-107); Glucose 125 mg/dL (83-110); Magnesium 2.3 mg/dL (1.6-2.6); Potassium 3.8 mmol/L (3.5-5.1); Sodium 129 mmol/L (136-145)
[2021-01-13 13:52] LABS: Phosphorus 2.3 mg/dL (2.3-4.7)
[2021-01-13] MEDS: traMADol HCl 50 MG TAB PO PRN (16:09)
[2021-01-13] MEDS: Melatonin 3 MG TAB PO SCH (19:48)
[2021-01-13] MEDS: Cyclobenzaprine 10 MG TAB PO PRN (19:48)
[2021-01-14] MEDS: Cyclobenzaprine 10 MG TAB PO PRN (01:34)
[2021-01-14] MEDS: Acetaminophen 325 MG TAB PO SCH ×3 (01:34→11:48)
[2021-01-14] MEDS: traMADol HCl 50 MG TAB PO PRN (01:34)
[2021-01-14 05:57] LABS: Eosinophils 5 % (0-10); Hemoglobin 9.3 g/dL (12.0-16.0); Lymphocytes 17 % (21-51); MDiff Complete? YES; Mean Corpuscular HGB CONC 35.1 g/dL (32.0-36.0); Mean Corpuscular Hemoglobin 29.9 pg (27.0-31.0); Mean Corpuscular Volume 85.1 fL (78.0-98.0); Mean Platelet Volume 7.1 fL (7.4-10.4); Monocytes 8 % (0-10); Neutrophil 68 % (42-75); Platelet Count 220 thou/uL (130-400); Platelet Morphology Comment Appears Adequate; RBC Distribution Width 14.1 % (11.5-14.5); Reactive Lymphocytes 2 % (0-10); Red Blood Cell (RBC) Count 3.12 mill/uL (4.20-5.40); White Blood Cell (WBC) Count 13.8 thou/uL (4.8-10.8)
[2021-01-14 06:09] LABS: Anion Gap 12 mmol/L (10-20); BUN (Urea Nitrogen) 14 mg/dL (9.8-20.1); Calc. Creatinine Clearance 82 mL/min (70-130); Carbon Dioxide 27 mmol/L (23-31); Chloride 95 mmol/L (98-107); Glucose 107 mg/dL (83-110); Magnesium 1.7 mg/dL (1.6-2.6); Phosphorus 2.7 mg/dL (2.3-4.7); Sodium 130 mmol/L (136-145)
[2021-01-14] MEDS: OMEPRAZOLE PO SCH (07:48)
[2021-01-14] MEDS: SODIUM BICARBONATE PO SCH (07:48)
[2021-01-14] MEDS: Aspirin 81 mg Enteric Coated Tablet PO SCH (07:50)
[2021-01-14] MEDS: Hydrochlorothiazide 25 MG TAB PO SCH (07:50)
[2021-01-14] MEDS: Polyethylene Glycol 3350 17 GM Packet PO SCH (07:51)
[2021-01-14] MEDS: Senokot S 8.6-50 MG TAB PO SCH (07:51)
[2021-01-14] MEDS ORDERED: Sodium Phosphate 30 MMOL in Sodium Chloride 0.9% 250 ML 250 ML IVPB SCH (08:30)
[2021-01-14] MEDS ORDERED: Magnesium Sulfate 3 GM in Sodium Chloride 0.9% 100 ML IV SCH (08:30)
[2021-01-14] MEDS ORDERED: Magnesium Oxide 400 MG TAB PO SCH (09:00)
[2021-01-14 15:32] VITALS: BP 138/79; TEMP 98.3
[2021-01-14] MEDS ORDERED: Ferrous Sulfate 325 MG TAB PO SCH (17:00)
[2021-01-14] MEDS ORDERED: Ascorbic Acid 500 mg Chewable Tablet PO SCH (17:00)
== END 2021-01-14 16:22 | disposition swing bed (61) | DRG 481 ==
LOC: ERS 08:35 → SURG A 10:29
PROVIDERS: ADMIT Specialist; ATTEND Specialist
PROC: 0QS604Z Reposition Right Upper Femur with Internal Fixation Device, Open Approach (ICD-10-PCS; principal; 2021-01-10)
DX: S72.141A Displaced intertrochanteric fracture of right femur, initial encounter for closed fracture (principal); E87.1 Hypo-osmolality and hyponatremia; K92.0 Hematemesis; I10 Essential (primary) hypertension; K21.9 Gastro-esophageal reflux disease without esophagitis; Z96.653 Presence of artificial knee joint, bilateral; S51.011A Laceration without foreign body of right elbow, initial encounter; W19.XXXA Unspecified fall, initial encounter; S80.01XA Contusion of right knee, initial encounter; K58.9 Irritable bowel syndrome, unspecified; Y92.9 Unspecified place or not applicable; Z90.710 Acquired absence of both cervix and uterus; Z91.012 Allergy to eggs; Z91.010 Allergy to peanuts; Z88.0 Allergy status to penicillin; Z88.7 Allergy status to serum and vaccine; Z91.018 Allergy to other foods; Z88.8 Allergy status to other drugs, medicaments and biological substances
CPT/HCPCS: 36415; 71045; 72170; 76000; 80048; 80053; 81001; 82533; 83735; 83880; 84100; 84484; 85007; 85025; 85027; 85610; 85730; 86850; 86900; 86901; 87086; 93005; 93010; 96374; 96375; 96376; C1713; C9113; G0390; J1100; J1720; J1885; J1956; J2270; J2370; J2405; J2704; J3010; J3475; J3480; J3490; J7050; Q0162

== ENCOUNTER 2022-09-12 13:44 | Outpatient (CLI) | payer MEDICARE | END 2022-09-12 13:45 | disposition home or self-care (01) | LOC: BICRAD 13:44 | PROVIDERS: ATTEND Nurse Practitioner Family | DX: S22.080A Wedge compression fracture of T11-T12 vertebra, initial encounter for closed fracture (principal); M41.84 Other forms of scoliosis, thoracic region; Q25.46 Tortuous aortic arch | CPT/HCPCS: 71046; 72072 ==

== ENCOUNTER 2024-01-06 14:02 | Observation (INO) | payer MEDICARE ==
[2024-01-06] MEDS ORDERED: Nitroglycerin 2% Ointment 1 INCH/1 GM Packet ONE (14:31)
[2024-01-06 16:15] LABS: #Basophils 0.03 10x3/uL (0.0-0.2); %Basophils 0.3 % (0.0-1.0); %Eosinophils 3.4 % (0.0-10.0); %Lymphocytes 28.1 % (21.0-51.0); %Monocytes 7.3 % (0.0-10.0); %Neutrophils 60.3 % (42.0-75.0); Hematocrit 42.9 % (36.0-47.0); Hemoglobin 14.7 g/dL (12.0-16.0); Mean Corpuscular HGB CONC 34.3 g/dL (32.0-36.0); Mean Corpuscular Hemoglobin 30.7 pg (27.0-31.0); Mean Corpuscular Volume 89.6 fL (78.0-98.0); Mean Platelet Volume 8.7 fL (7.4-10.4); Platelet Count 292 10x3/uL (130-400); RBC Distribution Width 14.4 % (11.5-14.5); Red Blood Cell (RBC) Count 4.79 mill/uL (4.20-5.40)
[2024-01-06 16:29] LABS: ALT (SGPT) 16 U/L (8-55); AST (SGOT) 18 U/L (5-34); Albumin 4.3 g/dL (3.4-4.8); Alkaline Phosphatase 117 U/L (40-110); Anion Gap 18 mmol/L (10-20); BUN (Urea Nitrogen) 16 mg/dL (9.8-20.1); Bilirubin, Total 0.5 mg/dL (0.2-1.2); Calc. Creatinine Clearance 0 mL/min (70-130); Calcium 11.5 mg/dL (7.8-10.44); Carbon Dioxide 23 mmol/L (23-31); Chloride 99 mmol/L (98-107); Estimated GFR 78; Globulin 3.1 g/dL (2.4-3.5); Glucose 98 mg/dL (83-110); Potassium 4.2 mmol/L (3.5-5.1); Protein, Total 7.4 g/dL (5.8-8.1); Sodium 136 mmol/L (136-145)
[2024-01-06 16:34] LABS: Troponin I Less than 0.010 ng/mL (< 0.028)
[2024-01-06] MEDS ORDERED: hydrALAZINE 20 MG/ML VIAL ONE (16:38)
[2024-01-06 18:42] VITALS: BMI 32.3
[2024-01-06 19:28] LABS: Troponin I Less than 0.010 ng/mL (< 0.028)
[2024-01-06] MEDS: Acetaminophen 325 MG TAB PO PRN (20:08)
[2024-01-06] MEDS ORDERED: Loperamide HCl 2 MG CAP PO PRN (20:33)
[2024-01-06] MEDS: rOPINIRole HCl 2 MG TAB PO SCH (20:52)
[2024-01-06] MEDS: Magnesium Oxide 400 MG TAB PO SCH (20:52)
[2024-01-06] MEDS: Melatonin 3 MG TAB PO SCH (20:52)
[2024-01-06] MEDS: Methylcellulose 500 MG TAB PO SCH (20:52)
[2024-01-06 22:33] LABS: Troponin I Less than 0.010 ng/mL (< 0.028)
[2024-01-06] MEDS: HYDROcodone/Acetaminophen 5/325 mg Tablet PO PRN (23:36)
[2024-01-07] MEDS: hydrALAZINE 20 MG/ML VIAL SLOW IVP PRN (03:45)
[2024-01-07 07:01] LABS: #Basophils 0.06 10x3/uL (0.0-0.2); %Basophils 0.7 % (0.0-1.0); %Lymphocytes 28.3 % (21.0-51.0); %Monocytes 8.7 % (0.0-10.0); %Neutrophils 57.9 % (42.0-75.0); Hematocrit 43.5 % (36.0-47.0); Hemoglobin 14.1 g/dL (12.0-16.0); Mean Corpuscular HGB CONC 32.4 g/dL (32.0-36.0); Mean Corpuscular Hemoglobin 29.6 pg (27.0-31.0); Mean Corpuscular Volume 91.4 fL (78.0-98.0); Mean Platelet Volume 9.3 fL (7.4-10.4); Platelet Count 256 10x3/uL (130-400); RBC Distribution Width 14.7 % (11.5-14.5); Red Blood Cell (RBC) Count 4.76 mill/uL (4.20-5.40)
[2024-01-07 07:24] LABS: ALT (SGPT) 16 U/L (8-55); AST (SGOT) 22 U/L (5-34); Albumin 3.6 g/dL (3.4-4.8); Alkaline Phosphatase 97 U/L (40-110); Anion Gap 15 mmol/L (10-20); BUN (Urea Nitrogen) 16 mg/dL (9.8-20.1); Bilirubin, Total 0.6 mg/dL (0.2-1.2); Calc. Creatinine Clearance 72 mL/min (70-130); Calcium 10.5 mg/dL (7.8-10.44); Carbon Dioxide 18 mmol/L (23-31); Chloride 103 mmol/L (98-107); Estimated GFR 85; Globulin 3.1 g/dL (2.4-3.5); Glucose 88 mg/dL (83-110); Potassium 4.2 mmol/L (3.5-5.1); Protein, Total 6.7 g/dL (5.8-8.1); Sodium 132 mmol/L (136-145)
[2024-01-07] MEDS ORDERED: Hydrochlorothiazide 25 MG TAB PO SCH (09:00)
[2024-01-07 09:58] VITALS: TEMP 97.7
[2024-01-07] MEDS ORDERED: ADENOSINE 60 MG/20 ML SDV ONE (10:00)
[2024-01-07] MEDS: Losartan 25 MG TAB PO SCH (11:12)
[2024-01-07] MEDS: Meclizine HCl 25 MG TAB PO SCH (11:12)
[2024-01-07] MEDS: Enoxaparin 40 MG (0.4 mL) SYRINGE SC SCH (11:12)
[2024-01-07] MEDS: Amlodipine 5 MG TAB PO SCH (11:12)
[2024-01-07] MEDS: Hydrochlorothiazide 25 MG TAB PO SCH (11:14)
[2024-01-07 16:14] VITALS: BP 169/81
== END 2024-01-07 15:35 | disposition home or self-care (01) ==
LOC: ERS 14:02 → 2SW 17:14
PROVIDERS: ADMIT Internal Medicine; ATTEND Hospitalist
PROC: B246ZZZ Ultrasonography of Right and Left Heart (ICD-10-PCS; principal; 2024-01-07)
DX: R07.89 Other chest pain (principal); I08.3 Combined rheumatic disorders of mitral, aortic and tricuspid valves; I16.0 Hypertensive urgency; I10 Essential (primary) hypertension; I25.10 Atherosclerotic heart disease of native coronary artery without angina pectoris; E83.52 Hypercalcemia; D35.1 Benign neoplasm of parathyroid gland; Z88.0 Allergy status to penicillin; Z88.7 Allergy status to serum and vaccine; Z88.8 Allergy status to other drugs, medicaments and biological substances; Z91.012 Allergy to eggs; Z91.010 Allergy to peanuts; Z91.018 Allergy to other foods; Z79.899 Other long term (current) drug therapy
CPT/HCPCS: 71045; 78452; 80053 ×2; 83880; 84484 ×2; 85025 ×2; 85379; 93005; 93017; 93306; 93970; 96374; 97116; 99285; A9502; J0153; J0360 ×2; J1650; 36415; 96372; 96376; G0378

== ENCOUNTER 2025-06-19 12:43 | Inpatient (IN) | payer MEDICARE ==
[~2025-06-19 12:43] MED LIST: Iopamidol-370 76% 500 ML MDV (1 ML CHARGE) ONE
[2025-06-19 13:49] LABS: #Basophils 0.04 10x3/uL (0.0-0.2); #Eosinophils 0.54 10x3/uL (0.0-0.7); #Monocytes 1.14 10x3/uL (0.11-0.59); #Neutrophils 14.99 10x3/uL (1.40-6.50); %Basophils 0.2 % (0.0-1.0); %Eosinophils 2.9 % (0.0-10.0); %Lymphocytes 8.8 % (21.0-51.0); %Monocytes 6.1 % (0.0-10.0); %Neutrophils 80.7 % (42.0-75.0); Hematocrit 38.6 % (36.0-47.0); Hemoglobin 12.6 g/dL (12.0-16.0); Mean Corpuscular Hemoglobin 27.0 pg (27.0-31.0); Mean Corpuscular Volume 82.7 fL (78.0-98.0); Platelet Count 323 10x3/uL (130-400); Red Blood Cell (RBC) Count 4.67 mill/uL (4.20-5.40); White Blood Cell (WBC) Count 18.59 10x3/uL (4.8-10.8)
[2025-06-19] MEDS ORDERED: Albuterol 2.5 MG (3 mL) NEB ONE (13:57)
[2025-06-19 14:13] LABS: ALT (SGPT) 25 U/L (Less than 34); AST (SGOT) 24 U/L (11-34); Albumin 3.7 g/dL (3.1-4.5); Alkaline Phosphatase 98 U/L (40-110); Anion Gap 14 mmol/L (10-20); BUN (Urea Nitrogen) 18 mg/dL (9.8-20.1); Bilirubin, Total 0.5 mg/dL (0.3-1.2); Calc. Creatinine Clearance 0 mL/min (70-130); Calcium 10.2 mg/dL (7.8-10.44); Carbon Dioxide 27 mmol/L (23-31); Chloride 98 mmol/L (98-107); Globulin 3.0 g/dL (2.4-3.5); Glucose 99 mg/dL (83-110); Potassium 4.6 mmol/L (3.5-5.1); Sodium 134 mmol/L (136-145)
[2025-06-19] MEDS ORDERED: Dexamethasone 10 MG/ML VIAL ONE (15:20)
[2025-06-19] MEDS ORDERED: cefTRIAXone (ROCEPHIN) 1 GM VIAL ONE (15:28)
[2025-06-19] MEDS ORDERED: Azithromycin 500 MG VIAL ONE (16:01)
[2025-06-19] MEDS ORDERED: Senokot S 8.6-50 MG TAB PO PRN (18:33)
[2025-06-19] MEDS ORDERED: Ondansetron PF 4 MG/2 ML Vial IVP PRN (18:33)
[2025-06-19] MEDS: Acetaminophen 325 MG TAB PO PRN (19:51)
[2025-06-19] MEDS: Melatonin 3 MG TAB PO PRN (19:52)
[2025-06-19] MEDS: predniSONE 20 MG TAB PO SCH (19:52)
[2025-06-19 19:54] VITALS: BMI 34.2
[2025-06-19] MEDS: Guaifenesin DM 100-10/5 ML UDCUP PO PRN (20:33)
[2025-06-20 05:55] LABS: #Basophils Less than 0.03 10x3/uL (0.0-0.2); #Eosinophils Less than 0.03 10x3/uL (0.0-0.7); #Monocytes 0.10 10x3/uL (0.11-0.59); #Neutrophils 10.08 10x3/uL (1.40-6.50); %Basophils 0.1 % (0.0-1.0); %Eosinophils 0.1 % (0.0-10.0); %Lymphocytes 4.1 % (21.0-51.0); %Monocytes 0.9 % (0.0-10.0); %Neutrophils 93.3 % (42.0-75.0); Hematocrit 36.2 % (36.0-47.0); Hemoglobin 12.0 g/dL (12.0-16.0); Mean Corpuscular Hemoglobin 27.3 pg (27.0-31.0); Mean Corpuscular Volume 82.5 fL (78.0-98.0); Platelet Count 296 10x3/uL (130-400); Red Blood Cell (RBC) Count 4.39 mill/uL (4.20-5.40); White Blood Cell (WBC) Count 10.80 10x3/uL (4.8-10.8)
[2025-06-20 06:06] LABS: Anion Gap 12 mmol/L (10-20); BUN (Urea Nitrogen) 14 mg/dL (9.8-20.1); Calc. Creatinine Clearance 75 mL/min (70-130); Calcium 10.1 mg/dL (7.8-10.44); Carbon Dioxide 22 mmol/L (23-31); Chloride 99 mmol/L (98-107); Glucose 218 mg/dL (83-110); Potassium 4.1 mmol/L (3.5-5.1); Sodium 129 mmol/L (136-145)
[2025-06-20] MEDS: predniSONE 20 MG TAB PO SCH (07:56)
[2025-06-20] MEDS: Pantoprazole 40 MG DR.TAB PO SCH (12:39)
[2025-06-20] MEDS: cefTRIAXone\\ROCEPHIN 1 GM in Sodium Chloride 0.9% 100 ML IVPB SCH (15:28)
[2025-06-20] MEDS: Azithromycin 500 MG in Sodium Chloride 0.9% 250 ML 250 ML IVPB SCH (15:29)
[2025-06-20] MEDS: Enoxaparin 40 MG (0.4 mL) SYRINGE SC SCH (19:52)
[2025-06-20] MEDS: ALPRAZolam 0.25 MG TAB PO PRN (23:36)
[2025-06-21 05:46] LABS: #Basophils 0.04 10x3/uL (0.0-0.2); #Eosinophils Less than 0.03 10x3/uL (0.0-0.7); #Monocytes 0.52 10x3/uL (0.11-0.59); #Neutrophils 21.18 10x3/uL (1.40-6.50); %Basophils 0.2 % (0.0-1.0); %Eosinophils 0.0 % (0.0-10.0); %Lymphocytes 4.0 % (21.0-51.0); %Monocytes 2.3 % (0.0-10.0); %Neutrophils 92.1 % (42.0-75.0); Hematocrit 36.6 % (36.0-47.0); Hemoglobin 12.1 g/dL (12.0-16.0); Mean Corpuscular Hemoglobin 27.5 pg (27.0-31.0); Mean Corpuscular Volume 83.2 fL (78.0-98.0); Platelet Count 316 10x3/uL (130-400); Red Blood Cell (RBC) Count 4.40 mill/uL (4.20-5.40); White Blood Cell (WBC) Count 22.99 10x3/uL (4.8-10.8)
[2025-06-21 05:59] LABS: Anion Gap 13 mmol/L (10-20); BUN (Urea Nitrogen) 18 mg/dL (9.8-20.1); Calc. Creatinine Clearance 74 mL/min (70-130); Calcium 10.4 mg/dL (7.8-10.44); Carbon Dioxide 23 mmol/L (23-31); Chloride 98 mmol/L (98-107); Glucose 171 mg/dL (83-110); Potassium 4.6 mmol/L (3.5-5.1); Sodium 129 mmol/L (136-145)
[2025-06-21] MEDS: Losartan 25 MG TAB PO SCH (07:52)
[2025-06-21] MEDS ORDERED: SODIUM BICARBONATE PO SCH (09:00)
[2025-06-21] MEDS ORDERED: OMEPRAZOLE PO SCH (09:00)
[2025-06-21] MEDS ORDERED: [UNRECOGNIZED DRUG - OTHER] PO SCH (09:00)
[2025-06-22 06:58] LABS: #Basophils 0.04 10x3/uL (0.0-0.2); #Eosinophils Less than 0.03 10x3/uL (0.0-0.7); #Monocytes 0.40 10x3/uL (0.11-0.59); #Neutrophils 19.11 10x3/uL (1.40-6.50); %Basophils 0.2 % (0.0-1.0); %Eosinophils 0.0 % (0.0-10.0); %Lymphocytes 4.2 % (21.0-51.0); %Monocytes 1.9 % (0.0-10.0); %Neutrophils 92.3 % (42.0-75.0); Hematocrit 36.9 % (36.0-47.0); Hemoglobin 12.0 g/dL (12.0-16.0); Mean Corpuscular Hemoglobin 27.1 pg (27.0-31.0); Mean Corpuscular Volume 83.5 fL (78.0-98.0); Platelet Count 348 10x3/uL (130-400); Red Blood Cell (RBC) Count 4.42 mill/uL (4.20-5.40); White Blood Cell (WBC) Count 20.70 10x3/uL (4.8-10.8)
[2025-06-22 09:32] LABS: Anion Gap 18 mmol/L (10-20); BUN (Urea Nitrogen) 29 mg/dL (9.8-20.1); Calc. Creatinine Clearance 68 mL/min (70-130); Calcium 10.6 mg/dL (7.8-10.44); Carbon Dioxide 22 mmol/L (23-31); Chloride 96 mmol/L (98-107); Glucose 143 mg/dL (83-110); Potassium 5.4 mmol/L (3.5-5.1); Sodium 131 mmol/L (136-145)
[2025-06-22] MEDS: LOKELMA 10 GM PACKET PO SCH (10:52)
[2025-06-23 11:18] LABS: #Basophils 0.03 10x3/uL (0.0-0.2); #Eosinophils 0.03 10x3/uL (0.0-0.7); #Monocytes 1.26 10x3/uL (0.11-0.59); #Neutrophils 18.30 10x3/uL (1.40-6.50); %Basophils 0.1 % (0.0-1.0); %Eosinophils 0.1 % (0.0-10.0); %Lymphocytes 6.3 % (21.0-51.0); %Monocytes 5.9 % (0.0-10.0); %Neutrophils 86.1 % (42.0-75.0); Hematocrit 38.1 % (36.0-47.0); Hemoglobin 12.5 g/dL (12.0-16.0); Mean Corpuscular Hemoglobin 27.5 pg (27.0-31.0); Mean Corpuscular Volume 83.9 fL (78.0-98.0); Platelet Count 362 10x3/uL (130-400); Red Blood Cell (RBC) Count 4.54 mill/uL (4.20-5.40); White Blood Cell (WBC) Count 21.27 10x3/uL (4.8-10.8)
[2025-06-23 11:32] LABS: Anion Gap 13 mmol/L (10-20); BUN (Urea Nitrogen) 33 mg/dL (9.8-20.1); Calc. Creatinine Clearance 72 mL/min (70-130); Calcium 10.0 mg/dL (7.8-10.44); Carbon Dioxide 23 mmol/L (23-31); Chloride 96 mmol/L (98-107); Glucose 175 mg/dL (83-110); Potassium 4.6 mmol/L (3.5-5.1); Sodium 127 mmol/L (136-145)
[2025-06-23] MEDS ORDERED: Albuterol 2.5 MG (3 mL) NEB NEB PRN (15:13)
[2025-06-24 05:57] LABS: #Basophils 0.03 10x3/uL (0.0-0.2); #Eosinophils Less than 0.03 10x3/uL (0.0-0.7); #Monocytes 0.23 10x3/uL (0.11-0.59); #Neutrophils 13.88 10x3/uL (1.40-6.50); %Basophils 0.2 % (0.0-1.0); %Eosinophils 0.0 % (0.0-10.0); %Lymphocytes 4.5 % (21.0-51.0); %Monocytes 1.5 % (0.0-10.0); %Neutrophils 92.4 % (42.0-75.0); Hematocrit 34.6 % (36.0-47.0); Hemoglobin 11.5 g/dL (12.0-16.0); Mean Corpuscular Hemoglobin 27.5 pg (27.0-31.0); Mean Corpuscular Volume 82.8 fL (78.0-98.0); Platelet Count 330 10x3/uL (130-400); Red Blood Cell (RBC) Count 4.18 mill/uL (4.20-5.40); White Blood Cell (WBC) Count 15.02 10x3/uL (4.8-10.8)
[2025-06-24 06:08] LABS: Anion Gap 12 mmol/L (10-20); BUN (Urea Nitrogen) 31 mg/dL (9.8-20.1); Calc. Creatinine Clearance 63 mL/min (70-130); Calcium 9.6 mg/dL (7.8-10.44); Carbon Dioxide 25 mmol/L (23-31); Chloride 97 mmol/L (98-107); Glucose 160 mg/dL (83-110); Potassium 4.4 mmol/L (3.5-5.1); Sodium 130 mmol/L (136-145)
[2025-06-24] MEDS: Benzonatate 100 MG CAP PO SCH (14:22)
[2025-06-25] MEDS: guaiFENesin/Codeine 200 mg/20 mg 10 ml Cup PO PRN (09:38)
[2025-06-26 06:55] LABS: #Basophils Less than 0.03 10x3/uL (0.0-0.2); #Eosinophils Less than 0.03 10x3/uL (0.0-0.7); #Monocytes 0.43 10x3/uL (0.11-0.59); #Neutrophils 14.76 10x3/uL (1.40-6.50); %Basophils 0.1 % (0.0-1.0); %Eosinophils 0.0 % (0.0-10.0); %Lymphocytes 4.6 % (21.0-51.0); %Monocytes 2.7 % (0.0-10.0); %Neutrophils 91.2 % (42.0-75.0); Hematocrit 32.7 % (36.0-47.0); Hemoglobin 10.8 g/dL (12.0-16.0); Mean Corpuscular Hemoglobin 27.1 pg (27.0-31.0); Mean Corpuscular Volume 82.2 fL (78.0-98.0); Platelet Count 319 10x3/uL (130-400); Red Blood Cell (RBC) Count 3.98 mill/uL (4.20-5.40); White Blood Cell (WBC) Count 16.19 10x3/uL (4.8-10.8)
[2025-06-26 07:01] LABS: Anion Gap 7 mmol/L (10-20); BUN (Urea Nitrogen) 35 mg/dL (9.8-20.1); Calc. Creatinine Clearance 70 mL/min (70-130); Calcium 9.8 mg/dL (7.8-10.44); Carbon Dioxide 25 mmol/L (23-31); Chloride 97 mmol/L (98-107); Glucose 154 mg/dL (83-110); Potassium 4.3 mmol/L (3.5-5.1); Sodium 125 mmol/L (136-145)
[2025-06-26 09:48] LABS: Osmolality, Serum 284 mOsm/kg (280-301)
[2025-06-26 11:56] LABS: Osmolality, Urine 641 mOsm/kg (50-1200)
[2025-06-27 17:44] VITALS: BP 129/68; TEMP 98.2
== END 2025-06-27 18:25 | DRG 193 ==
LOC: ERS 12:43 → T4-A 17:12 → OBSVTOIN 06-20 13:07
PROVIDERS: ADMIT Internal Medicine; ATTEND Hospitalist
DX: J18.9 Pneumonia, unspecified organism (principal); J96.01 Acute respiratory failure with hypoxia; E22.2 Syndrome of inappropriate secretion of antidiuretic hormone; I10 Essential (primary) hypertension; K21.9 Gastro-esophageal reflux disease without esophagitis; F41.9 Anxiety disorder, unspecified; E87.6 Hypokalemia; J20.9 Acute bronchitis, unspecified; Z96.653 Presence of artificial knee joint, bilateral; E78.5 Hyperlipidemia, unspecified; Z88.0 Allergy status to penicillin; Z88.8 Allergy status to other drugs, medicaments and biological substances; Z91.0120 Allergy to eggs, unspecified; Z91.018 Allergy to other foods; Z88.7 Allergy status to serum and vaccine; Z90.710 Acquired absence of both cervix and uterus; Z98.890 Other specified postprocedural states; Z98.41 Cataract extraction status, right eye; Z98.42 Cataract extraction status, left eye
CPT/HCPCS: 36415; 36416; 71045; 71046; 71275; 80048; 80053; 83605; 83880; 83930; 83935; 84145; 84300; 84443; 84484; 85025; 87040; 87077; 87149; 87428; 87633; 93005; 94640; 94760; 96365; 96375; J0456; J0696; J1100; J1650; J2270; J2272; J2919; J7050; J7512; J7611; J7626; Q9967